=== PATIENT | female | born 2000 | race African-American/Black ===

== ENCOUNTER 2021-02-18 09:48 | Emergency (ER) | payer OTHER, SELFPAY ==
[2021-02-18 09:59] VITALS: BP 115/72; PULSE 92; RESP 18; TEMP 36.8; O2SAT 98; BMI 22.4
--- NOTE | 2021-02-18 10:15 | ED.URI ---
HPI - URI/Sore Throat General Chief Complaint: Upper Respiratory Symptoms Stated Complaint: sore throat Time Seen by Provider: 02/18/21 10:05 Source: patient Mode of arrival: ambulatory Limitations: no limitations History of Present Illness HPI Narrative: This is a 20-year-old female presents emergency with a sore throat , nasal congestion, and headache that has been progressively worsening for the past 2 days. She also states that she has felt warm home but she is unsure if she has had a fever. She states that her sister was seen here in the emergency department yesterday, her sister tested positive for strep throat. So she wanted to come today and get tested. She is currently accompanied by her other sister who is experiencing the same symptoms. She denies chest pain, cough, shortness of breath, chills, headache, abdominal pain, nausea, vomiting, diarrhea. She is eating and drinking well. MD elicited complaint: sore throat and nasal congestion Onset (ago): day(s) (2) Consistency: constant Severity: mild Able to tolerate fluids by mouth: Yes Exacerbating factors: nothing Relieving factors: nothing Context: sick contacts (Sister at home has strep throat, sister at the bedside has similar symptoms) Associated symptoms: nasal congestion and sore throat Treatments prior to arrival: none Related Data Previous Rx's Medication Instructions Recorded amoxicillin 875 mg-potassium 1 tab PO BID 10 Days #20 tab 02/18/21 clavulanate 125 mg tablet (Augmentin) Allergies Allergy/AdvReac Type Severity Reaction Status Date / Time No Known Allergies Allergy Unverified 02/15/20 17:31 [No Known Allergies*] Review of Systems Review of Systems: Constitutional : No Weight loss, No Fever, No Chills, No Night Sweats, No Fatigue, NoMalaise ENT/Mouth: No ear pain, + sore throat, No Difficulty swallowing, + runny nose Cardiovascular : No Chest Pain, No SOB, No Dyspnea on Exertion, No Orthopnea, NoEdema, No Palpitations Respiratory : No Cough, No Sputum, No Wheezing, No Dyspnea Gastrointestinal : No Nausea, No Vomiting, No abdominal pain, No Diarrhea, No blood streaked emesis, No coffee-ground emesis, No gross hematemesis, No blood streak stool, No gross hematochezia, No Melena Genitourinary : No irregular bleeding, No Dysuria, Musculoskeletal : No joint pain, No Myalgias, No Joint Swelling Skin : No Skin Lesions, No rash Neuro : No Weakness, No Numbness, No Paresthesias, No Loss of Consciousness, NoDizziness, No Headache Psych : No Social Issues, Heme/Lymph: No Bruising, No Bleeding,No Lymphadenopathy Endocrine : No Polyuria, No Polydipsia, No Temperature Intolerance Yes all other systems are reviewed and are negative PMFSH Past Medical History Attestation statement: The following information was validated with the patient. Medical History No known health problems Social History Social History Advance Directives: No Patient : No Physical Exam Vital Signs: Vital Signs: Last Vital Signs Temp 98.2 F 02/18/21 09:59 Pulse 92 02/18/21 09:59 Resp 18 02/18/21 09:59 BP 115/72 02/18/21 09:59 Pulse Ox 98 02/18/21 09:59 Body Mass Index 22.4 Vital signs have been reviewed and all WNL. Appearance: Alert. Oriented and active. Well hydrated/Nourished/developed. No acute distress. Patient sitting upright on the stretcher, laughing with her sister, on the phone, she appears well and comfortable Head: Normal external exam. Normocephalic. Atraumatic. Eyes: PERRLA. EOMI. Conjunctiva and sclera normal. Eyelids normal. ENT: TM WNL. EAC WNL. Hearing normal. Pharynx normal, no erythema or exudates. Tonsils appear normal in size. Uvula midline. tongue midline. Moist mucous membranes. No otorrhea, erythema, or effusions noted in bilateral ears. No lymphadenopathy noted. Neck: Normal inspection. Neck supple. FROM. No adenopathy. Thyroid Normal. Trachea midline. No meningeal signs. No neck mass noted. CVS: Normal heart rate and rhythm. Heart sound normal. No murmurs noted. Pulses normal throughout. Respiratory: No respiratory distress. Painless inspiration. Breath sounds normal. No rales/rhonchi noted. Chest nontender. No accessory muscle usage noted or decreased air movement noted. Abdomen: Soft and nontender. Nondistended. No guarding noted. No rebound tenderness noted. Negative psoas sign/rovsing signs/obturator sign/Chance sign. Skin: Skin warm and dry. Normal skin color. Normal skin turgor. No rashes/lesions/lacerations noted. Extremities: Extremities exhibit normal range of motion. Extremities nontender. Able to shrug shoulders bilaterally Neuro: Active and alert. No motor deficit. No sensory deficit. Reflexes normal. Moving all extremities. Normal steady gait noted. Course Course Course Narrative: This is a 20-year-old female that presents to the emergency department with 2 days of sore throat, headache, and nasal discharge. She states that her sister at home has strep throat. So she wanted to come in today and get tested. She is eating and drinking and feeling well. Physical exam shows no abnormalities. Flu/COVID/RSV and strep swab has been ordered and are pending [facility] - URI/Sore Throat Medical Records Attestation: I reviewed the patient's medical records. Lab Data Attestation: I reviewed the patient's lab results. Labs: Lab Results 02/18/21 Range/Units 10:09 S. pyogenes GrpA RADHA Negative (Negative) Discharge Plan Discharge Clinical Impression: Pharyngitis Patient Disposition: Home, Self-Care Instructions: Pharyngitis (ED) Additional Instructions: Taking medications as prescribed. Drink plenty of fluids You may return to school aslong as you tested negative for flu/COVID/RSV. Follow-up with your primary care provider We will call you back if any of your test come back positive Return to the emergency department with new or worsening symptoms. Prescriptions: New amoxicillin-pot clavulanate [Augmentin] 875-125 mg tablet 1 tab PO BID 10 Days Qty: 20 RF: 0 Referrals: Makayla Sheridan MD [Primary Care Provider] - 2 days Stand Alone Forms: Work/School Release
[2021-02-18 10:35] LABS: IDNOW Serial# 9DD0AD1C; Strep A Nucleic Acid Negative (Negative)
[2021-02-18 10:50] LABS: COVID-19 Test Negative (Negative); IDNOW Serial# 9DD0AD1C
== END 2021-02-18 10:46 | disposition home or self-care (01) ==
PROVIDERS: Emergency Provider Emergency Medicine; PCP Pediatrics
DX: J02.8 Acute pharyngitis due to other specified organisms (principal); R51.9 Headache, unspecified; Z79.899 Other long term (current) drug therapy; Z20.822 Contact with and (suspected) exposure to COVID-19
CPT/HCPCS: 36415; 87635; 87651; 99283

== ENCOUNTER 2021-04-29 01:41 | Emergency (ER) | payer OTHER, SELFPAY ==
--- NOTE | ~2021-04-29 | XR_ITS ---
EXAMINATION: XR CHEST CLINICAL INFORMATION: Cough and shortness of breath. COMPARISON: Chest x-ray from 10/03/2016. TECHNIQUE: 2 views of the chest were obtained. FINDINGS: No airspace opacities or pleural effusions are seen. The cardiomediastinal silhouette is normal. No acute osseous abnormality identified. XR/XR chest 2V IMPRESSION: Clear lungs. No radiographic acute process.
[2021-04-29 02:25] VITALS: BP 132/60; PULSE 91; RESP 16; TEMP 37.1; O2SAT 98; BMI 24.1
[2021-04-29 02:45] LABS: Strep A Nucleic Acid Negative (Negative)
[2021-04-29 02:48] LABS: COVID-19 Test Negative (Negative)
--- NOTE | 2021-04-29 07:10 | ED_ITS ---
HPI - URI/Sore Throat General Chief Complaint: Upper Respiratory Symptoms Stated Complaint: sore throat Time Seen by Provider: 04/29/21 07:09 Source: patient Mode of arrival: ambulatory Limitations: no limitations History of Present Illness HPI Narrative: 20-year-old female came in for evaluation of upper respiratory symptoms. Started with fever, chills, generalized body ache, coughing, sore throat. For 1 day, no sick contact, no recent travel, patient is vaccinated x2 for COVID. Related Data Previous Rx's Medication Instructions Recorded amoxicillin 875 mg-potassium 1 tab PO BID 10 Days #20 tab 02/18/21 clavulanate 125 mg tablet (Augmentin) Allergies Allergy/AdvReac Type Severity Reaction Status Date / Time No Known Allergies Allergy Unverified 02/15/20 17:31 [No Known Allergies*] Review of Systems Review of Systems: All other systems are reviewed and are negative Constitutional: Reports as per HPI and Reports no additional constitutional complaints Eyes: Reports as per HPI and Reports no additional eye complaints Reports system reviewed and no additional complaints, except as documented Cardiovascular: Reports as per HPI and Reports no additional cardiovascular complaints Respiratory: Reports as per HPI and Reports no additional respiratory complaints Gastrointestinal: Reports as per HPI and Reports no additional gastrointestinal complaints Genitourinary: Reports no additional female genitourinary complaints Musculoskeletal: Reports no additional musculoskeletal complaints Skin/Breast: Reports system reviewed and no additional complaints, except as docu Psychiatric: Reports no additional psychiatric complaints Endocrine: Reports no additional endocrine complaints Hematologic/Lymphatic: Reports no additional hematologic/lymphatic complaints Allergic/Immunologic: Reports no additional allergic/immunologic complaints Reports system reviewed and no additional complaints, except as documented and Reports Abnormal speech present [facility] Past Medical History Medical History Asthma No known health problems Social History Social History Advance Directives: No Advance Directives Information Provided: No Patient : No Physical Exam Vital Signs: Vital Signs: Last Vital Signs Temp 98.7 F 04/29/21 02:25 Pulse 91 04/29/21 02:25 Resp 16 04/29/21 02:25 BP 132/60 04/29/21 02:25 Pulse Ox 98 04/29/21 02:25 Body Mass Index 24.1 Vital signs have been reviewed as appeared to be correct. Blood pressure normal. Heart rate normal. Respiration rate normal. Temperature normal. Oxygen saturation normal. Appearance: Alert. Oriented X3. No acute distress. Head: Normal external exam. Normocephalic. Atraumatic. No Field signs noted. No raccoon eyes noted Eyes: PERRLA. EOMI. Conjunctiva and sclera normal. Eyelids normal. ENT: TM's Normal. Pharynx normal. Uvula midline. Moist mucous membranes. No trismus noted. No drooling noted. No muffled voice noted. Neck: Normal inspection. Neck supple. FROM. No adenopathy. Thyroid Normal. No meningeal signs. No neck mass noted. CVS: Normal heart rate and rhythm. Heart sound normal. No murmurs noted. Pulses normal throughout. Respiratory: No respiratory distress. Painless inspiration. Breath sounds normal. No wheezes/rales/rhonchi noted. Chest nontender. No accessory muscle usage noted or decreased air movement noted. Abdomen: Soft and nontender. Bowel sounds normal in all 4 quadrants. No distention noted. No organomegaly noted. No visible injury noted. Back: No CVA tenderness. Full range of motion noted. Skin: Skin warm and dry. Normal skin color. Normal skin turgor. No rashes/lesions/lacerations noted. Extremities: No lower extremity edema. Extremities exhibit normal range of motion. Extremities nontender. Neuro: Oriented X 3. Cranial nerve exam: II-XII are grossly intact No motor deficit. No sensory deficit. Reflexes normal. Course Course Course Narrative: Assessment and plan. 20-year-old female came in for evaluation of upper respiratory symptoms, patient negative for COVID/flu/RSV. Chest x-ray is unremarkable. Rapid strep is negative. MDM - URI/Sore Throat Lab Data Labs: Lab Results 04/29/21 04/29/21 Range/Units 02:27 02:27 COVID-19 (JOHAN) Negative (Negative) COVID-19 Clin Com See Note S. pyogenes GrpA RADHA Negative (Negative) Discharge Plan Discharge Clinical Impression: Upper respiratory infection Patient Disposition: Home, Self-Care Instructions: Viral Syndrome (ED) Prescriptions: No Action amoxicillin-pot clavulanate [Augmentin] 875-125 mg tablet 1 tab PO BID 10 Days Qty: 20 RF: 0 Referrals: [facility] [Primary Care Provider] - 2 days
[2021-04-29 07:57] VITALS: BP 113/57; PULSE 85; RESP 16; O2SAT 100
== END 2021-04-29 08:26 | disposition home or self-care (01) ==
PROVIDERS: Emergency Provider Emergency Medicine
DX: J06.9 Acute upper respiratory infection, unspecified (principal); Z20.822 Contact with and (suspected) exposure to COVID-19; J02.9 Acute pharyngitis, unspecified; J45.909 Unspecified asthma, uncomplicated
CPT/HCPCS: 36415; 71046; 87635; 87651; 99283; 99284

== ENCOUNTER 2021-09-23 07:50 | Day surgery (SDC) | payer MEDICAID, SELFPAY ==
[2021-09-23] VITALS (18 sets, daily range): BP systolic 108–132; BP diastolic 60–85; PULSE 61–94; RESP 12–18; TEMP 36.5–37.2; O2SAT 98–100; BMI 23.0
--- NOTE | ~2021-09-23 | CT_ITS ---
EXAMINATION: CT ABDOMEN AND PELVIS WITH CONTRAST CLINICAL INFORMATION: Diffuse abdominal tenderness, greatest in the right lower quadrant. COMPARISON: None. TECHNIQUE: Multidetector volumetric images were obtained from the superior aspect of the liver through the pubic symphysis following administration 85 mL of Omnipaque 350 intravenous contrast. Sagittal and coronal reformatted images were obtained on the technologist's workstation. Oral contrast: Yes This CT examination was performed using dose optimization techniques as appropriate, variously including the following: *Automated exposure control *Adjustment of mA and/or kV according to patient size (this includes techniques or standardized protocols for targeted exams where dose is matched to indication/reason for exam; i.e. extremities or head) *Use of iterative reconstruction technique DLP: 425 mGy-cm FINDINGS: LUNG BASES: The visualized lung bases are unremarkable. LIVER, GALLBLADDER, AND BILIARY TREE: The liver is normal in size, shape, and attenuation. There is a small 3 mm low-attenuation lesion high in the dome of the liver. This is difficult to characterize due to small size but probably represents a cyst. There is no biliary duct dilatation. The gallbladder is unremarkable with no evidence of radiopaque gallstones, gallbladder wall thickening, or obvious pericholecystic inflammatory changes. PANCREAS: Unremarkable. SPLEEN: Unremarkable. ADRENAL GLANDS: Unremarkable. KIDNEYS AND URETERS: The kidneys are normal in size, shape, and attenuation. No hydronephrosis, hydroureter, or calculi seen. No perinephric stranding. BLADDER: Unremarkable. GASTROINTESTINAL TRACT: There is a dilated tubular blind-ending structure in the right lower quadrant suggestive of acute appendicitis. This measures 1.3 cm in diameter. There is high attenuation suggestive of appendicoliths. There is a small amount of surrounding fluid in the right lower quadrant. No free air/evidence of perforation. ABDOMINAL WALL: No significant hernia is appreciated. LYMPH NODES: There is shotty small bowel mesentery lymphadenopathy in the right lower quadrant. VASCULAR: Unremarkable. PELVIC VISCERA: Unremarkable. OSSEOUS STRUCTURES: Unremarkable. CT/CT abdomen pelvis w con IMPRESSION: Acute appendicitis. Small amount of surrounding fluid in the right lower quadrant. Fleischner guidelines were followed. Findings were communicated to Corina Kamara by telephone on 09/23/2021 at 10:55 AM.
--- NOTE | 2021-09-23 08:22 | ED_ITS ---
HPI - Abdominal Pain General Chief Complaint: Abdominal Pain Stated Complaint: abd pain Time Seen by Provider: 09/23/21 08:11 Source: patient Mode of arrival: ambulatory History of Present Illness HPI narrative: 20-year-old female with a past medical history of asthma presenting to the ED complaining left upper abdominal pain radiating to the epigastrium x2 weeks. Reports pain intermittent however has become more constant. Reports associated nausea and emesis this morning. Also reports constipation, last BM 3 days ago. Denies fever, chills, diarrhea, dysuria/hematuria. LMP last month. MD elicited complaint: abdominal pain and flank pain Onset (ago): week(s) Related Data Previous Rx's Medication Instructions Recorded amoxicillin 875 mg-potassium 1 tab PO BID 10 Days #20 tab 02/18/21 clavulanate 125 mg tablet (Augmentin) Allergies Allergy/AdvReac Type Severity Reaction Status Date / Time No Known Allergies Allergy Unverified 02/15/20 17:31 [No Known Allergies*] Review of Systems Review of Systems Constitutional: No Fever, No Chills, No Fatigue, No Malaise ENT/Mouth: No Ear Pain, No Nasal Congestion, No sore throat, No Rhinorrhea, No Swallowing Difficulty Eyes: No Eye Pain, No Swelling, No Redness, No Discharge, No Vision Changes Cardiovascular: No Chest Pain, No SOB, No Edema, No Palpitations Respiratory: No Cough, No Sputum, No Dyspnea Gastrointestinal: + Nausea, + Vomiting, No Diarrhea, + Constipation,+No Abdominal pain Genitourinary: No Dysuria, No Urinary Frequency, No Hematuria, + Flank Pain, No Urinary Flow Changes, No Hesitancy Musculoskeletal: No joint pain, No Myalgias, No Joint Swelling Skin: No Skin Lesions, No rash Neuro: No Weakness, No Dizziness, No Headache Yes all other systems are reviewed and are negative ON LICENSE OF [facility] Past Medical History Attestation statement: The following information was validated with the patient. Medical History Asthma No known health problems Social History Social History Advance Directives: No Advance Directives Information Provided: No Physical Exam ED Vital Signs: Vital Signs - 24 hr 09/23/21 08:20 Temperature 98.8 F Pulse Rate 87 Respiratory Rate 18 Blood Pressure 122/70 Pulse Oximetry 100 BMI result Body Mass Index 23.0 Const General: cooperative, healthy appearing and no acute distress Orientation/consciousness: patient oriented x3 Limitations: no limitations HENMT Head: Yes normal to inspection and Yes atraumatic Ears: hearing grossly normal bilaterally General nose exam: Normal external nose present Face and sinus: Yes normal facial exam Eyes General: appearance normal, both eyes and all related structures EOM: EOMs intact bilaterally Neck Neck: Yes normal visual inspection and Yes no meningeal signs Resp Effort & Inspection: normal respiratory effort and no respiratory distress Cardio Rate: regular rate Heart sounds: S1 normal heart sound present and S2 normal heart sound present GI Inspection: Yes normal to inspection Palpation (GI): Soft to palpation, Tenderness to palpation present (GI) (Diffusely tender > RLQ) in the epigastrum and in the RLQ; Negative for with no rebound tenderness, no guarding and not rigid General: Yes CVA tenderness bilateral Back/Spine/Pelvis Back: CVA tenderness Skin Rashes: no rashes Wounds: no wounds Neuro General: patient oriented x3, tone normal and no meningeal signs Gait exam (Neuro): Normal gait present Extrem General: Yes normal to inspection Course Course Course Narrative: -mild leukocytosis of 11.6, labs otherwise unremarkable. negative. -1100--received call from radiology patient with acute appendicitis with surrounding fluid, no perforation. Surgery Dr. Gomez consulted. CT abdomen pelvis w con IMPRESSION: Acute appendicitis. Small amount of surrounding fluid in the right lower quadrant. Fleischner guidelines were followed. >> Dr. Gomez evaluated patient in the ED, will add to OR schedule later today MDM - Abdominal Pain MDM Narrative Medical decision making narrative: 20-year-old female with a past medical history of asthma presenting to the ED complaining left upper abdominal pain radiating to the epigastrium x2 weeks. On exam vital signs stable, NAD/nontoxic appearing, abdomen soft diffusely tender greatest in the right lower quadrant. Bilateral CVA tenderness. No rebound or guarding. Concern for appendicitis vs diverticulitis/colitis vs cholecystitis/lithiasis vs pancreatitis. Rule out Plan: Labs, UA, , IVF, pain management, CT, re-evaluate Medical Records Attestation: I reviewed the patient's medical records. Lab Data Attestation: I reviewed the patient's lab results. Result diagrams: 04/26/22 08:37 09/23/21 08:37 Labs: Lab Results 09/23/21 09/23/21 09/23/21 Range/Units 08:22 08:23 08:37 WBC 11.6 H (4.8-10.8) X10*3/uL RBC 4.36 (4.20-5.50) X10*6/uL Hgb 11.3 L (12.0-16.0) g/dl Hct 35.8 L (37.0-47.0) % MCV 82.1 (80.0-98.0) fL MCH 25.9 L (27.0-33.0) pg MCHC 31.6 (31.0-35.0) g/dl RDW 13.2 (11.0-16.0) % Plt Count 243 (160-400) X10*3/uL MPV 8.6 L (9.4-12.3) fL Immature Gran % (Auto) 0.4 (0.0-0.4) % Neut % (Auto) 77.6 H (45-73) % Lymph % (Auto) 12.5 L (20-40) % [place] % (Auto) 7.0 (2-11) % Eos % (Auto) 2.3 (0-4) % Baso % (Auto) 0.2 (0-2) % Lymph # (Auto) 1.5 (1.2-4.9) X10*3/uL [place] # (Auto) 0.8 (0.1-1.2) X10*3/uL Eos # (Auto) 0.3 (0.0-0.4) X10*3/uL Baso # (Auto) 0.0 (0.0-0.2) X10*3/uL Abs Immat Gran (auto) 0.05 H (0.00-0.03) X10*3/uL Absolute Neuts (auto) 9.0 H (2.0-8.3) x10*3/uL Absolute Nucleated RBC 0.000 (0.0-0.012) X10*3/uL Nucleated RBC % (auto) 0.0 (0.0-0.2) /100WBC Sodium (135-145) mmol/L Potassium (3.3-5.1) mmol/L Chloride (96-108) mmol/L Carbon Dioxide (22-29) mmol/L Anion Gap (12-20) BUN (9-16) mg/dL Creatinine (0.5-1.4) mg/dL Estim Creat Clear Calc Estimated GFR Random Glucose (60-115) mg/dL Calcium (8.4-10.2) mg/dL Magnesium (1.6-2.6) mg/dL Total Bilirubin (0.0-1.0) mg/dL Direct Bilirubin (0.0-0.5) mg/dL AST (5-31) U/L ALT (0-31) U/L Alkaline Phosphatase (39-117) U/L Total Protein (6.5-8.0) g/dL Albumin (3.5-5.0) g/dL Lipase (8-78) U/L Beta HCG, Quant mIU/mL Urine Color YELLOW Urine Appearance CLEAR Urine pH 6.0 (5.0-8.0) Ur Specific Elsa 1.020 (1.005-1.025) Urine Protein NEG (NEG-TRACE) MG/DL Urine Glucose (UA) NEG (NEG) MG/DL Urine Ketones NEG (NEG) MG/DL Urine Blood NEG (NEG) Urine Nitrite NEG (NEG) Ur Leukocyte Esterase NEG (NEG) Urine Test NEGATIVE (NEGATIVE) 09/23/21 09/23/21 Range/Units 08:37 08:37 WBC (4.8-10.8) X10*3/uL RBC (4.20-5.50) X10*6/uL Hgb (12.0-16.0) g/dl Hct (37.0-47.0) % MCV (80.0-98.0) fL MCH (27.0-33.0) pg MCHC (31.0-35.0) g/dl RDW (11.0-16.0) % Plt Count (160-400) X10*3/uL MPV (9.4-12.3) fL Immature Gran % (Auto) (0.0-0.4) % Neut % (Auto) (45-73) % Lymph % (Auto) (20-40) % [place] % (Auto) (2-11) % Eos % (Auto) (0-4) % Baso % (Auto) (0-2) % Lymph # (Auto) (1.2-4.9) X10*3/uL [place] # (Auto) (0.1-1.2) X10*3/uL Eos # (Auto) (0.0-0.4) X10*3/uL Baso # (Auto) (0.0-0.2) X10*3/uL Abs Immat Gran (auto) (0.00-0.03) X10*3/uL Absolute Neuts (auto) (2.0-8.3) x10*3/uL Absolute Nucleated RBC (0.0-0.012) X10*3/uL Nucleated RBC % (auto) (0.0-0.2) /100WBC Sodium 137 (135-145) mmol/L Potassium 4.3 (3.3-5.1) mmol/L Chloride 106 (96-108) mmol/L Carbon Dioxide 26 (22-29) mmol/L Anion Gap 9 L (12-20) BUN 8 L (9-16) mg/dL Creatinine 0.76 (0.5-1.4) mg/dL Estim Creat Clear Calc 98.4 Estimated GFR > 60 Random Glucose 95 (60-115) mg/dL Calcium 9.3 (8.4-10.2) mg/dL Magnesium 2.0 (1.6-2.6) mg/dL Total Bilirubin 0.4 (0.0-1.0) mg/dL Direct Bilirubin 0.2 (0.0-0.5) mg/dL AST 12 (5-31) U/L ALT 6 (0-31) U/L Alkaline Phosphatase 62 (39-117) U/L Total Protein 7.3 (6.5-8.0) g/dL Albumin 4.2 (3.5-5.0) g/dL Lipase 25 (8-78) U/L Beta HCG, Quant < 2 mIU/mL Urine Color Urine Appearance Urine pH (5.0-8.0) Ur Specific Elsa (1.005-1.025) Urine Protein (NEG-TRACE) MG/DL Urine Glucose (UA) (NEG) MG/DL Urine Ketones (NEG) MG/DL Urine Blood (NEG) Urine Nitrite (NEG) Ur Leukocyte Esterase (NEG) Urine Test (NEGATIVE) Discharge Plan Discharge Clinical Impression: Acute appendicitis Patient Disposition: Admitted As Inpatient
[2021-09-23 08:30] LABS: Appearance Urine CLEAR; Color Urine YELLOW; Glucose Urine UA NEG (NEG); Leukocyte Esterase Urine NEG (NEG); Nitrite Urine NEG (NEG); Urine Blood NEG (NEG); Urine Ketones NEG (NEG); Urine Protein NEG (NEG-TRACE)
[2021-09-23 08:33] LABS: UPreg QC Valid YES; Urine Pregnancy NEGATIVE (NEGATIVE)
[2021-09-23 08:42] LABS: MANUAL DIFF FLAG NO
[2021-09-23 08:43] LABS: Basophils Percent Auto 0.2 % (0-2); Eosinophils Absolute Auto 0.3 X10*3/uL (0.0-0.4); Eosinophils Percent Auto 2.3 % (0-4); Hematocrit 35.8 % (37.0-47.0); Hemoglobin 11.3 g/dl (12.0-16.0); Imm Gran Abs Auto 0.05 X10*3/uL (0.00-0.03); Imm Gran Pct Auto 0.4 % (0.0-0.4); Lymphocytes Absolute Auto 1.5 X10*3/uL (1.2-4.9); Lymphocytes Percent Auto 12.5 % (20-40); Mean Corpuscular HGB Conc 31.6 g/dl (31.0-35.0); Mean Corpuscular Hemoglobin 25.9 pg (27.0-33.0); Mean Corpuscular Volume 82.1 fL (80.0-98.0); Mean Platelet Volume 8.6 fL (9.4-12.3); Monocytes Absolute Auto 0.8 X10*3/uL (0.1-1.2); Neutrophils Percent Auto 77.6 % (45-73); Platelet Count 243 X10*3/uL (160-400); Red Blood Count 4.36 X10*6/uL (4.20-5.50); Red Cell Distribution Width 13.2 % (11.0-16.0); White Blood Count 11.6 X10*3/uL (4.8-10.8)
[2021-09-23] MEDS: Famotidine/PF 20 MG/2 ML VIAL IVPUSH (08:53)
[2021-09-23] MEDS: 0.9 % Sodium Chloride 1,000 ML 999 ML IV ×2 (08:54→11:16)
[2021-09-23 09:14] LABS: HCG Quantitative < 2 mIU/mL
[2021-09-23 09:17] LABS: Alanine Aminotransferase 6 U/L (0-31); Albumin Level 4.2 g/dL (3.5-5.0); Alkaline Phosphatase 62 U/L (39-117); Aspartate Amino Transferase 12 U/L (5-31); Bilirubin Direct 0.2 mg/dL (0.0-0.5); Bilirubin Total 0.4 mg/dL (0.0-1.0); Blood Urea Nitrogen 8 mg/dL (9-16); Calcium 9.3 mg/dL (8.4-10.2); Creatinine Clr Calc Pharmacy 98.4; Estimated Glomerular Filt Rate > 60; Glucose Random 95 mg/dL (60-115); Lipase 25 U/L (8-78); Total Protein 7.3 g/dL (6.5-8.0)
[2021-09-23 09:30] LABS: Anion Gap 9 (12-20); Carbon Dioxide 26 mmol/L (22-29); Chloride 106 mmol/L (96-108); Potassium 4.3 mmol/L (3.3-5.1); Sodium 137 mmol/L (135-145)
[2021-09-23] MEDS: iohexoL 350 MG/ML 100 ML INFUS..BTL 85 ML IV (09:58)
[2021-09-23] MEDS: Ketorolac Tromethamine 15 MG/ML VIAL IVPUSH (10:27)
[2021-09-23] MEDS: ondansetron HCL 4 MG/2 ML VIAL IVPUSH ×2 (10:27→18:57)
--- NOTE | 2021-09-23 11:17 | PM.HPGS ---
History of Present Illness History of Present Illness Date of Service: 09/23/21 Chief complaint: abd pain Narrative: Gabo Nava is a 20 year old female presenting with complaints of abdominal pain of 2 weeks duration. The pain was initially felt in the epigastrium but now is become localized to the right lower quadrant. The pain is associated with nausea, vomiting, anorexia, but no fever, chills, diarrhea or constipation. Pain seems to increase with movement/walking. She subsequently presented to the emergency department was noted to be tender in the right lower quadrant over McBurney's point. Laboratories revealed a mildly elevated WBC. CT of the abdomen and pelvis revealed a thickened appendix with fecalith and surrounding fluid. No air bubbles are noted surrounding the appendix. Findings are consistent with acute appendicitis. Review of Systems Constitutional: Constitutional: Denies chills, Denies fever(s), Denies headache(s) and Denies poor appetite ENT: Denies dizziness and Denies headache(s) Cardiovascular: Cardiovascular: Denies chest pain, Denies rapid heart rate, Denies palpitations and Denies slow heart rate Respiratory: Respiratory: Denies chest congestion, Denies cough, Denies pain on inspiration and Denies wheezing Gastrointestinal: Gastrointestinal: Reports abdominal pain, Denies bloating, Denies change in stool character, Denies constipation, Denies diarrhea, Reports nausea, Reports vomiting and Denies hematemesis Musculoskeletal: Musculoskeletal: Denies back pain, Denies arthralgias, Denies joint swelling and Denies numbness Integumentary/Breasts: Skin/Breast: Denies change in pigmentation, Denies erythema and Denies rash Neurologic: Denies dizziness, Denies headache(s) and Denies numbness Psychiatric: Psychiatric: Denies anxiety and Denies depression Endocrine: Endocrine: Denies palpitations Hematologic/Lymphatic: Hematologic/Lymphatic: Denies easy bleeding, Denies easy bruising and Denies lymphadenopathy Allergic/Immunologic: Allergic/Immunologic: Denies wheezing PMFSH Past Medical History Medical History Asthma No known health problems Social History Social History Advance Directives: No Advance Directives Information Provided: No Meds Allergies Allergy/AdvReac Type Severity Reaction Status Date / Time No Known Allergies Allergy Unverified 02/15/20 17:31 [No Known Allergies*] Active Medications: Current Medications Sodium Chloride (Ns) 1,000 mls @ 999 mls/hr IV .Q1H1M BIBIANA Stop: 09/23/21 12:00 Last Admin: 09/23/21 11:16 Dose: 999 mls/hr Documented by: Pharmacy Consult (Consult Rx Perform Med Rec) 1 each MISCELLANE ONCE PRN PRN Reason: Consult order Physical Exam Vital Signs: Vital Signs: Last Vital Signs Temp 98.8 F 09/23/21 08:20 Pulse 87 09/23/21 08:20 Resp 18 09/23/21 08:20 BP 122/70 09/23/21 08:20 Pulse Ox 100 09/23/21 08:20 BMI result Body Mass Index 23.0 Const: General: cooperative, comfortable and well developed Nutritional Appearance: well nourished Orientation/consciousness: patient oriented x3 Eyes: Sclerae: sclerae normal EOM: EOMs intact bilaterally Neck: Neck: Yes normal visual inspection Resp: Effort & Inspection: normal respiratory effort, no cough, no respiratory distress and no stridor Cardio: Jugular venous distension: no JVD GI: Inspection: Yes normal to inspection Palpation (GI): Soft to palpation, Tenderness to palpation present (GI) in the RLQ, at McBurney's point, with rebound tenderness and Rovsing's sign positive, no guarding and not rigid Percussion: Yes normal to percussion Rectal Exam - Female: deferred Skin: General skin exam: dry skin Rashes: no rashes Neuro: General: patient oriented x3 and no focal motor deficits Extrem: General: Yes full ROM and Yes no clubbing, cyanosis or edema Psych: Appearance: grossly normal Results Results Labs: Short CBC 09/23/21 Range/Units 08:37 WBC 11.6 H (4.8-10.8) X10*3/uL Hgb 11.3 L (12.0-16.0) g/dl Hct 35.8 L (37.0-47.0) % Plt Count 243 (160-400) X10*3/uL BMP 09/23/21 08:37 Sodium 137 Potassium 4.3 Chloride 106 Carbon Dioxide 26 BUN 8 L Creatinine 0.76 Calcium 9.3 Liver Function 04/26/22 Range/Units 08:37 Total Bilirubin 0.4 (0.0-1.0) mg/dL Direct Bilirubin 0.2 (0.0-0.5) mg/dL AST 12 (5-31) U/L ALT 6 (0-31) U/L Alkaline Phosphatase 62 (39-117) U/L Albumin 4.2 (3.5-5.0) g/dL Urine 09/23/21 09/23/21 Range/Units 08:22 08:23 Urine Color YELLOW Urine Appearance CLEAR Urine pH 6.0 (5.0-8.0) Ur Specific Clarissa 1.020 (1.005-1.025) Urine Protein NEG (NEG-TRACE) MG/DL Urine Glucose (UA) NEG (NEG) MG/DL Urine Test NEGATIVE (NEGATIVE) Assessment and Plan (1) Acute appendicitis: Status: Acute Plan 20-year-old female patient presenting with complaints of abdominal pain of 2 weeks duration. Pain is now localized to the right lower quadrant. Workup revealed elevated WBC and CT is consistent with acute appendicitis. Findings were discussed in detail with the patient and her mother. Because of the presence of a fecalith laparoscopic appendectomy is recommended. After discussion of the procedure, risks, and alternatives, the patient consents to a laparoscopic or possible open appendectomy. She will be added onto the operative schedule for today. Quality Stroke Does the patient have a stroke diagnosis?: No VTE Prior VTE?: No VTE Risk Level:: Surgical - low VTE Device Contraindication: N/A - Device Ordered VTE Drug Contraindication: Treatment Not Indicated Procedures Date of Service Date of Service: 09/23/21
[2021-09-23 11:38] LABS: Lactic Acid 0.8 mmol/L (0.5-2.0)
--- NOTE | 2021-09-23 11:43 | PHA.MEDREC ---
Pharmacy Consult ? Medication Reconciliation Pharmacy has completed the medication reconciliation. No known home meds. Noelle BobbyD
[2021-09-23 11:45] LABS: COVID-19 Test Negative (Negative)
[2021-09-23] MEDS: Lactated Ringers 1,000 ML 100 ML IVCONT ×2 (12:33→18:45)
--- NOTE | 2021-09-23 12:38 | PC.NURSE ---
report given to short stay rn
--- NOTE | 2021-09-23 13:32 | HO.ANESPROP2 ---
[facility] Active Problems Active Problems: All Active Problems (Updated 09/23/21 @ 11:13 by LISA Huang) Acute appendicitis (Acute) Past Medical History Medical History Asthma No known health problems Family History Family history of problems with anesthesia: No Surgical History History of Problems with Anesthesia: No Social History Social History Patient Tobacco Use Status: Never used Tobacco Use of substances other than those prescribed or required for medical reasons: No Are you DNR?: No Advance Directives: No Advance Directives Information Provided: No Meds Allergies Allergy/AdvReac Type Severity Reaction Status Date / Time No Known Allergies Allergy Unverified 02/15/20 17:31 [No Known Allergies*] Active Medications: Current Medications Lactated Ringer's (Lr) 1,000 mls @ 100 mls/hr IVCONT .Q10H BIBIANA Last Admin: 09/23/21 12:33 Dose: 100 mls/hr Documented by: Pharmacy Consult (Consult Rx Perform Med Rec) 1 each MISCELLANE ONCE PRN PRN Reason: Consult order Home Medications Medication Instructions Recorded Confirmed Last Taken Type No Known Home Meds 09/23/21 09/23/21 Unknown History Exam Exam Date and Time: September 23, 2021 1332 Height,Weight and Vital Signs: Height 5 ft 3 in Weight 58.967 kg Last Vital Signs Temp 98.9 F 09/23/21 13:14 Pulse 72 09/23/21 13:14 Resp 16 09/23/21 13:14 BP 121/75 09/23/21 13:14 Pulse Ox 98 09/23/21 13:14 Pertinent Lab Results Pertinent Lab Results: Laboratory Tests 09/23/21 09/23/21 09/23/21 08:22 08:23 08:37 WBC 11.6 H RBC 4.36 Hgb 11.3 L Hct 35.8 L MCV 82.1 MCH 25.9 L MCHC 31.6 RDW 13.2 Plt Count 243 MPV 8.6 L Immature Gran % (Auto) 0.4 Neut % (Auto) 77.6 H Lymph % (Auto) 12.5 L [place] % (Auto) 7.0 Eos % (Auto) 2.3 Baso % (Auto) 0.2 Lymph # (Auto) 1.5 [place] # (Auto) 0.8 Eos # (Auto) 0.3 Baso # (Auto) 0.0 Abs Immat Gran (auto) 0.05 H Absolute Neuts (auto) 9.0 H Absolute Nucleated RBC 0.000 Nucleated RBC % (auto) 0.0 Neutrophils % (Manual) Cancelled Band Neutrophils % Cancelled Lymphocytes % (Manual) Cancelled Atypical Lymphs % (Man) Cancelled Monocytes % (Manual) Cancelled Eosinophils % (Manual) Cancelled Basophils % (Manual) Cancelled Metamyelocytes % Cancelled Myelocytes % Cancelled Promyelocytes % Cancelled Blast Cells % (Manual) Cancelled Plasma Cell % (Manual) Cancelled Abs Neuts (Manual) Cancelled Lymphocytes # (Manual) Cancelled Atyp Lymphs # (Manual) Cancelled Monocytes # (Manual) Cancelled Eosinophils # (Manual) Cancelled Basophils # (Manual) Cancelled Metamyelocytes # Cancelled Myelocytes # Cancelled Promyelocytes # Cancelled Blast Cells # Cancelled Plasma Cell # (Manual) Cancelled Nucleated RBCs Cancelled Differential Comment Cancelled Hypersegmented Neuts Cancelled Smudge Cells Cancelled Toxic Granulation Cancelled Toxic Vacuolation Cancelled Dohle Bodies Cancelled Lazarus Rods Cancelled WBC Morphology Comment Cancelled Platelet Estimate Cancelled Large Platelets Cancelled Giant Platelets Cancelled Plt Morphology Comment Cancelled RBC Morphology Cancelled Polychromasia Cancelled Hypochromasia Cancelled Basophilic Stippling Cancelled Microcytosis Cancelled Macrocytosis Cancelled Spherocytes Cancelled Pappenheimer Bodies Cancelled Sickle Cells Cancelled Target Cells Cancelled Tear Drop Cells Cancelled Ovalocytes Cancelled Stomatocytes Cancelled [place] Bodies Cancelled [place] Cells Cancelled Acanthocytes (Spur) Cancelled Rouleaux Cancelled Schistocytes Cancelled Sodium Potassium Chloride Carbon Dioxide Anion Gap BUN Creatinine Estim Creat Clear Calc Estimated GFR Random Glucose Lactic Acid Calcium Magnesium Total Bilirubin Direct Bilirubin AST ALT Alkaline Phosphatase Total Protein Albumin Lipase Beta HCG, Quant Urine Color YELLOW Urine Appearance CLEAR Urine pH 6.0 Ur Specific [place] 1.020 Urine Protein NEG Urine Glucose (UA) NEG Urine Ketones NEG Urine Blood NEG Urine Nitrite NEG Ur Leukocyte Esterase NEG Urine Test NEGATIVE COVID-19 (JOHAN) COVID-19 Clin [facility] 09/23/21 09/23/21 09/23/21 08:37 08:37 11:19 WBC RBC Hgb Hct MCV MCH MCHC RDW Plt Count MPV Immature Gran % (Auto) Neut % (Auto) Lymph % (Auto) [place] % (Auto) Eos % (Auto) Baso % (Auto) Lymph # (Auto) [place] # (Auto) Eos # (Auto) Baso # (Auto) Abs Immat Gran (auto) Absolute Neuts (auto) Absolute Nucleated RBC Nucleated RBC % (auto) Neutrophils % (Manual) Band Neutrophils % Lymphocytes % (Manual) Atypical Lymphs % (Man) Monocytes % (Manual) Eosinophils % (Manual) Basophils % (Manual) Metamyelocytes % Myelocytes % Promyelocytes % Blast Cells % (Manual) Plasma Cell % (Manual) Abs Neuts (Manual) Lymphocytes # (Manual) Atyp Lymphs # (Manual) Monocytes # (Manual) Eosinophils # (Manual) Basophils # (Manual) Metamyelocytes # Myelocytes # Promyelocytes # Blast Cells # Plasma Cell # (Manual) Nucleated RBCs Differential Comment Hypersegmented Neuts Smudge Cells Toxic Granulation Toxic Vacuolation Dohle Bodies Lazarus Rods WBC Morphology Comment Platelet Estimate Large Platelets Giant Platelets Plt Morphology Comment RBC Morphology Polychromasia Hypochromasia Basophilic Stippling Microcytosis Macrocytosis Spherocytes Pappenheimer Bodies Sickle Cells Target Cells Tear Drop Cells Ovalocytes Stomatocytes [place] Bodies [place] Cells Acanthocytes (Spur) Rouleaux Schistocytes Sodium 137 Potassium 4.3 Chloride 106 Carbon Dioxide 26 Anion Gap 9 L BUN 8 L Creatinine 0.76 Estim Creat Clear Calc 98.4 Estimated GFR > 60 Random Glucose 95 Lactic Acid 0.8 Calcium 9.3 Magnesium 2.0 Total Bilirubin 0.4 Direct Bilirubin 0.2 AST 12 ALT 6 Alkaline Phosphatase 62 Total Protein 7.3 Albumin 4.2 Lipase 25 Beta HCG, Quant < 2 Urine Color Urine Appearance Urine pH Ur Specific [place] Urine Protein Urine Glucose (UA) Urine Ketones Urine Blood Urine Nitrite Ur Leukocyte Esterase Urine Test COVID-19 (JOHAN) COVID-19 Clin Com 09/23/21 11:25 WBC RBC Hgb Hct MCV MCH MCHC RDW Plt Count MPV Immature Gran % (Auto) Neut % (Auto) Lymph % (Auto) [place] % (Auto) Eos % (Auto) Baso % (Auto) Lymph # (Auto) [place] # (Auto) Eos # (Auto) Baso # (Auto) Abs Immat Gran (auto) Absolute Neuts (auto) Absolute Nucleated RBC Nucleated RBC % (auto) Neutrophils % (Manual) Band Neutrophils % Lymphocytes % (Manual) Atypical Lymphs % (Man) Monocytes % (Manual) Eosinophils % (Manual) Basophils % (Manual) Metamyelocytes % Myelocytes % Promyelocytes % Blast Cells % (Manual) Plasma Cell % (Manual) Abs Neuts (Manual) Lymphocytes # (Manual) Atyp Lymphs # (Manual) Monocytes # (Manual) Eosinophils # (Manual) Basophils # (Manual) Metamyelocytes # Myelocytes # Promyelocytes # Blast Cells # Plasma Cell # (Manual) Nucleated RBCs Differential Comment Hypersegmented Neuts Smudge Cells Toxic Granulation Toxic Vacuolation Dohle Bodies Lazarus Rods WBC Morphology Comment Platelet Estimate Large Platelets Giant Platelets Plt Morphology Comment RBC Morphology Polychromasia Hypochromasia Basophilic Stippling Microcytosis Macrocytosis Spherocytes Pappenheimer Bodies Sickle Cells Target Cells Tear Drop Cells Ovalocytes Stomatocytes [place] Bodies Raul Cells Acanthocytes (Spur) Rouleaux Schistocytes Sodium Potassium Chloride Carbon Dioxide Anion Gap BUN Creatinine Estim Creat Clear Calc Estimated GFR Random Glucose Lactic Acid Calcium Magnesium Total Bilirubin Direct Bilirubin AST ALT Alkaline Phosphatase Total Protein Albumin Lipase Beta HCG, Quant Urine Color Urine Appearance Urine pH Ur Specific [place] Urine Protein Urine Glucose (UA) Urine Ketones Urine Blood Urine Nitrite Ur Leukocyte Esterase Urine Test COVID-19 (JOHAN) Negative COVID-19 Clin Com See Note Airway Mallampati Class: II TM Dist: >3cm Neck ROM: Full Assessment and Plan Assessment Anesthesia Assessment: Anesthesia Plan Discussed and Chart Reviewed Final Anesthetic Review Family History of Problems with Anesthesia: No History of Problems with Anesthesia: No NPO: Yes ASA Class: I Final Preanesthetic Review: No Changes in Pt Med Stat, Meds/Allgs Chart Reviewed, Consent Obtained/Reviewed and Anes Risks/Benef Reviewed Patient Risk: Intermediate Procedure Risk: Intermediate Anesthetic Plan Anesthetic Plan: GA Disposition: Standard PACU
--- NOTE | 2021-09-23 14:47 | W.PM.OPN ---
Operative Note Operative Note Date of Service: 09/23/21 Narrative: Preoperative diagnosis: Acute appendicitis Postoperative diagnosis: Same Procedure: Laparoscopic appendectomy Surgeon: Sourav Gomez MD Medical Staff Physician: Lainey Monsalve PA-C Anesthesia: General endotracheal Indications for procedure:20 year old female patient with complaints of abdominal pain of 1 weeks duration presenting to the ED with increased RLQ pain. She was found to be tender in the RLQ; WBC was elevated and CT positive for acute appendicitis. Operative findings:Acute non-ruptured appendicitis Specimen: appendix Estimated blood loss:1 ml Complications: none Procedure details: Patient was brought to the OR and placed in a supine position. After administering general anesthesia the patient's abdomen was prepped with ChloraPrep and draped in a sterile fashion. A surgical time-out was called and consent confirmed. Patient received preoperative antibiotics and Venodyne boots were in place. Local anesthesia consisting of 0.25% Sensorcaine without epinephrine was infiltrated in periumbilical region. A 5 mm incision was made below the umbilicus and carried down through subcutaneous tissue. A Veress needle was then inserted while elevating abdominal cavity with towel clips. After a positive drop test the abdomen was insufflated to a pressure of 15 mm of mercury. The Veress needle was removed and a 5 mm trocar inserted. The camera was then inserted in the abdomen explored. A 2nd 5 mm trocars placed in the lower midline. A 12 mm trocar was then placed in the left lower quadrant. The patient was then placed in a Trendelenburg position and rotated to the left. The appendix was identified in the right lower quadrant and brought up using blunt dissecting clamps. The mesentery of the appendix was then divided using the LigaSure. The appendiceal artery was cauterized and divided using the LigaSure. Dissection was continued down to the base of the cecum. An Endo-OLAMIDE stapler with a purple reload was then used to divide the appendix at the base with the cecum. The appendix was then placed in Endo-Catch bag and brought out through the left lower quadrant incision. The abdomen was then irrigated with saline solution and suctioned dry. Wounds were checked for hemostasis. CO2 was then evacuated from the abdominal cavity and all trocars removed. Fascia was closed in the left lower quadrant incision using a [id number] Polysorb suture. Skin was closed at all incisions using a subcuticular 4-0 Polysorb suture. Steri-Strips 2 x 2 gauze and Tegaderm were then applied. The patient tolerated the procedure well. Sponge, instrument, needle counts reported as correct. The patient was transferred to PACU in stable condition.
[2021-09-23] MEDS: fentaNYL citrate/PF 100 MCG/2 ML VIAL 50 MCG IVPUSH ×2 (15:04→15:20)
[2021-09-23] MEDS: 0.9 % Sodium Chloride Flush 3 ML SYRINGE IVFLUSH (18:45)
[2021-09-23] MEDS: oxyCODONE HCl Immed Release 5 MG TABLET PO (18:57)
[2021-09-24] MEDS: oxyCODONE HCl Immed Release 5 MG TABLET PO (03:46)
[2021-09-24 04:00] VITALS: BP 117/54; PULSE 71; RESP 18; TEMP 37; O2SAT 98
[2021-09-24] MEDS: Lactated Ringers 1,000 ML 100 ML IVCONT ×2 (04:37→15:24)
[2021-09-24 07:42] VITALS: BP 99/58; PULSE 75; RESP 18; TEMP 36.6; O2SAT 100
--- NOTE | 2021-09-24 09:03 | P.PNGS_ITS ---
Subjective Subjective Date of Service: 09/24/21 Interval history: Feels ok this morning. Sore at incision sites, mostly umbilical. Says oxycodone just makes her tired. Tolerating diet. Ambulated to bathroom without difficulty. Does c/o bloating. Physical Exam Vital Signs: Vital Signs: Last Vital Signs Temp 98 F 09/24/21 07:42 Pulse 75 09/24/21 07:42 Resp 18 09/24/21 07:42 BP 99/58 L 09/24/21 07:42 Pulse Ox 100 09/24/21 07:42 BMI result Body Mass Index 23.0 Const: General: comfortable and no acute distress Orientation/consciousness: patient oriented x3 Resp: Effort & Inspection: normal respiratory effort GI: Inspection: No distended and Yes incision (dressings c/d/i) Palpation (GI): Soft to palpation, Tenderness to palpation present (GI) (mild, incisional), no guarding and not rigid Skin: General skin exam: no rashes or lesions noted Neuro: General: patient oriented x3 Extrem: General: Yes no clubbing, cyanosis or edema Objective Data Active Medications Acetaminophen (Acetaminophen 325 Mg Tablet) 650 mg PO Q6H PRN PRN Reason: Pain, Mild (Pain Scale 1-3) Lactated Ringer's (Lr) 1,000 mls @ 100 mls/hr IVCONT .Q10H BIB[place]NA Last Admin: 09/24/21 04:37 Dose: 100 mls/hr Documented by: INA Melatonin (Melatonin 3 Mg Tablet) 3 mg PO BEDTIME PRN PRN Reason: Insomnia Morphine Sulfate (Morphine Sulfate 2 Mg/Ml Cartridge) 3 mg IVPUSH Q3H PRN; Protocol PRN Reason: Pain, Severe (Pain Scale 7-10) Ondansetron HCl (Ondansetron Hcl 4 Mg/2 Ml Vial) 4 mg IVPUSH Q8H PRN PRN Reason: Nausea and Vomiting Last Admin: 09/23/21 18:57 Dose: 4 mg Documented by: DEJAH Oxycodone HCl (Oxycodone Hcl Immed Release 5 Mg Tablet) 5 mg PO Q4H PRN PRN Reason: Pain, Moderate (Pain Scale 4-6 Last Admin: 09/24/21 03:46 Dose: 5 mg Documented by: INA Pharmacy Consult (Consult Rx Perform Med Rec) 1 each MISCELLANE ONCE PRN PRN Reason: Consult order Sodium Chloride (0.9 % Sodium Chloride Flush 3 Ml Syringe) 3 ml IVFLUSH QSHIFT [place]NA Last Admin: 09/24/21 08:11 Dose: Not Given Documented by: JOE Non-Admin Reason: IV Running Labs CBC & Chem 7: 09/23/21 08:37 09/23/21 08:37 Labs: Laboratory Results - last 24 hr 09/23/21 09/23/21 09/23/21 08:37 08:37 08:37 Neutrophils % (Manual) Cancelled Band Neutrophils % Cancelled Lymphocytes % (Manual) Cancelled Atypical Lymphs % (Man) Cancelled Monocytes % (Manual) Cancelled Eosinophils % (Manual) Cancelled Basophils % (Manual) Cancelled Metamyelocytes % Cancelled Myelocytes % Cancelled Promyelocytes % Cancelled Blast Cells % (Manual) Cancelled Plasma Cell % (Manual) Cancelled Abs Neuts (Manual) Cancelled Lymphocytes # (Manual) Cancelled Atyp Lymphs # (Manual) Cancelled Monocytes # (Manual) Cancelled Eosinophils # (Manual) Cancelled Basophils # (Manual) Cancelled Metamyelocytes # Cancelled Myelocytes # Cancelled Promyelocytes # Cancelled Blast Cells # Cancelled Plasma Cell # (Manual) Cancelled Nucleated RBCs Cancelled Differential Comment Cancelled Hypersegmented Neuts Cancelled Smudge Cells Cancelled Toxic Granulation Cancelled Toxic Vacuolation Cancelled Dohle Bodies Cancelled Lazarus Rods Cancelled WBC Morphology Comment Cancelled Platelet Estimate Cancelled Large Platelets Cancelled Giant Platelets Cancelled Plt Morphology Comment Cancelled RBC Morphology Cancelled Polychromasia Cancelled Hypochromasia Cancelled Basophilic Stippling Cancelled Microcytosis Cancelled Macrocytosis Cancelled Spherocytes Cancelled Pappenheimer Bodies Cancelled Sickle Cells Cancelled Target Cells Cancelled Tear Drop Cells Cancelled Ovalocytes Cancelled Stomatocytes Cancelled [place] Bodies Cancelled Raul Cells Cancelled Acanthocytes (Spur) Cancelled Rouleaux Cancelled Schistocytes Cancelled Anion Gap 9 L Estim Creat Clear Calc 98.4 Estimated GFR > 60 Random Glucose 95 Lactic Acid Calcium 9.3 Magnesium 2.0 Total Bilirubin 0.4 Direct Bilirubin 0.2 AST 12 ALT 6 Alkaline Phosphatase 62 Total Protein 7.3 Albumin 4.2 Lipase 25 Beta HCG, Quant < 2 COVID-19 (JOHAN) COVID-19 Clin Com 09/23/21 09/23/21 11:19 11:25 Neutrophils % (Manual) Band Neutrophils % Lymphocytes % (Manual) Atypical Lymphs % (Man) Monocytes % (Manual) Eosinophils % (Manual) Basophils % (Manual) Metamyelocytes % Myelocytes % Promyelocytes % Blast Cells % (Manual) Plasma Cell % (Manual) Abs Neuts (Manual) Lymphocytes # (Manual) Atyp Lymphs # (Manual) Monocytes # (Manual) Eosinophils # (Manual) Basophils # (Manual) Metamyelocytes # Myelocytes # Promyelocytes # Blast Cells # Plasma Cell # (Manual) Nucleated RBCs Differential Comment Hypersegmented Neuts Smudge Cells Toxic Granulation Toxic Vacuolation Dohle Bodies Lazarus Rods WBC Morphology Comment Platelet Estimate Large Platelets Giant Platelets Plt Morphology Comment RBC Morphology Polychromasia Hypochromasia Basophilic Stippling Microcytosis Macrocytosis Spherocytes Pappenheimer Bodies Sickle Cells Target Cells Tear Drop Cells Ovalocytes Stomatocytes [place] Bodies Raul Cells Acanthocytes (Spur) Rouleaux Schistocytes Anion Gap Estim Creat Clear Calc Estimated GFR Random Glucose Lactic Acid 0.8 Calcium Magnesium Total Bilirubin Direct Bilirubin AST ALT Alkaline Phosphatase Total Protein Albumin Lipase Beta HCG, Quant COVID-19 (JOHAN) Negative COVID-19 Clin Com See Note Procedures Date of Service Date of Service: 09/24/21 Progress Note: A&P Assessment and plan (1) Acute appendicitis: Status: Acute (2) S/P laparoscopic appendectomy: Status: Acute Plan 20 year old female admitted with acute appendicitis now POD #1 s/p lap appy. Doing well post op. VSS. Abd with appropriate post op tenderness, dressings in tact. Encouraged to ambulate halls today. Will reassess after lunch. If comfortable, stable for discharge to home today. Patient comfortable with plan. Will change oxycodone to norco for analgesia. Time Spent With Patient Time: Total time spent is greater than 50% in coordination of care (as documented) at patient's floor/unit and/or counseling patient: Quality Stroke Does the patient have a stroke diagnosis?: No VTE Prior VTE?: No VTE Risk Level:: Surgical - low VTE Device Contraindication: N/A - Device Ordered VTE Drug Contraindication: Treatment Not Indicated
--- NOTE | 2021-09-24 09:36 | MHC.CM.PN ---
EMR REVIEWED, PT ADMITTED W/ACUTE APPENDICITIS S/P LAP APPENDECTOMY POD#1, CM MET W/PT WHO IS A&OX4, PT REPORTS SHE LIVES W/HER MOTHER, HAS NO DME AND NO HOME SERVICES, PT IS A STUDENT AND WORKS AND IS REQUESTING RETURN TO WORK AND SCHOOL LETTERS. PT DOES NOT REMEMBER THE NAME OF HER PCP HOWEVER KNOW PCP IS LOCATED AT [facility], PT REPORTS RECEIVING [employer] VACCINE X3 AND EDUCATED ON HCP'S AND CURRENTLY DECLINES. D/C PLAN: HOME SELF-CARE W/OUPT FOLLOW-UP IN SURGEONS OFFICE, PT'S MOTHER WILL TRANSPORT.
[2021-09-24 10:42] VITALS: BP 102/53; PULSE 84; RESP 18; TEMP 37.1; O2SAT 99
--- NOTE | 2021-09-24 13:55 | MHC.CM.PN ---
REFERRAL PLACED TO FS PT HAS NOT HAD INSURANCE SINCE SHE TURNED 19, PT WAS PREVIOUSLY ON MH UNDER HER MOTHERS NAME, [facility] WAS GIVEN PT CONTACT INFO.
[2021-09-24 15:58] VITALS: BP 104/63; PULSE 79; RESP 18; TEMP 36.7; O2SAT 100
[2021-09-24 17:00] VITALS: O2SAT 99
[2021-09-24 19:04] VITALS: BP 102/50; PULSE 88; RESP 18; TEMP 37.2; O2SAT 99
[2021-09-24] MEDS: HYDROcodone Bit/Acetam 5/325 TABLET 1 TAB PO (19:40)
[2021-09-25] VITALS: BP 99/55; PULSE 70; RESP 14; TEMP 36.8; O2SAT 99
[2021-09-25] MEDS: Lactated Ringers 1,000 ML 100 ML IVCONT (02:17)
[2021-09-25 03:43] VITALS: BP 104/65; PULSE 85; RESP 16; TEMP 36.8; O2SAT 99
--- NOTE | 2021-09-25 06:53 | HO.POSTANES ---
Post Anesthesia Evaluation Post Anesthesia Evaluation Vital Signs: Vital Signs Temp Pulse Resp BP Pulse Ox 09/25/21 03:43 98.2 F 85 16 104/65 99 09/25/21 00:00 98.3 F 70 14 99/55 L 99 09/24/21 19:04 98.9 F 88 18 102/50 L 99 Anesthesia: General Endotracheal-GETA Mental Status: Awake Pain Control: Satisfactory Nausea/Vomiting: None Hydration: Adequate Anesthesia-Related Issues: No Anes. Related Issues
[2021-09-25 07:41] VITALS: BP 96/61; PULSE 88; RESP 18; TEMP 36.8; O2SAT 100
--- NOTE | 2021-09-25 08:58 | P.PNGS_ITS ---
Subjective Subjective Date of Service: 09/25/21 Interval history: Feels better this morning. Shoulder pain has resolved. Tolerating diet. Wants to go home. Physical Exam Vital Signs: Vital Signs: Last Vital Signs Temp 98.2 F 09/25/21 07:41 Pulse 88 09/25/21 07:41 Resp 18 09/25/21 07:41 BP 96/61 09/25/21 07:41 Pulse Ox 100 09/25/21 07:41 BMI result Body Mass Index 23.0 Const: General: comfortable, no acute distress and alert Orientation/consciousness: patient oriented x3 Resp: Effort & Inspection: normal respiratory effort GI: Inspection: No distended and Yes incision (dressings c/d/i) Palpation (GI): Soft to palpation and Tenderness to palpation present (GI) (mild incisional) Percussion: Yes normal to percussion Skin: General skin exam: no rashes or lesions noted Neuro: General: patient oriented x3 Objective Data Active Medications Acetaminophen (Acetaminophen 325 Mg Tablet) 650 mg PO Q6H PRN PRN Reason: Pain, Mild (Pain Scale 1-3) Hydrocodone Bitart/Acetaminophen (Hydrocodone Bit/Acetam 5/325 Tablet) 1 tab PO Q4H PRN PRN Reason: Pain, Moderate (Pain Scale 4-6 Last Admin: 09/24/21 19:40 Dose: 1 tab Documented by: MILLIE Hydrocodone Bitart/Acetaminophen (Hydrocodone Bit/Acetam 10/325 Tablet) 1 tab PO Q4H PRN PRN Reason: Pain, Severe (Pain Scale 7-10) Benzocaine (Throat Lozenge, Medicated Lozenge) 1 lozenge MUCOUS MEM Q2H PRN PRN Reason: Sore Throat Lactated Ringer's (Lr) 1,000 mls @ 100 mls/hr IVCONT .Q10H BIBIANA Last Admin: 09/25/21 02:17 Dose: 100 mls/hr Documented by: STELLA Melatonin (Melatonin 3 Mg Tablet) 3 mg PO BEDTIME PRN PRN Reason: Insomnia Morphine Sulfate (Morphine Sulfate 2 Mg/Ml Cartridge) 3 mg IVPUSH Q3H PRN; Protocol PRN Reason: Pain, Severe (Pain Scale 7-10) Ondansetron HCl (Ondansetron Hcl 4 Mg/2 Ml Vial) 4 mg IVPUSH Q8H PRN PRN Reason: Nausea and Vomiting Last Admin: 09/23/21 18:57 Dose: 4 mg Documented by: DEJAH Pharmacy Consult (Consult Rx Perform Med Rec) 1 each MISCELLANE ONCE PRN PRN Reason: Consult order Sodium Chloride (0.9 % Sodium Chloride Flush 3 Ml Syringe) 3 ml IVFLUSH QSHIFT BIBIANA Last Admin: 09/25/21 08:12 Dose: Not Given Documented by: CARLY Non-Admin Reason: IV Running Labs CBC & Chem 7: 09/23/21 08:37 09/23/21 08:37 Microbiology Microbiology Results: Microbiology 09/23/21 11:19 Blood Culture - Preliminary Blood - Venous No growth after 24 hours. 09/23/21 11:19 Blood Culture - Preliminary Blood - Venous No growth after 24 hours. Procedures Date of Service Date of Service: 09/25/21 Progress Note: A&P Assessment and plan (1) S/P laparoscopic appendectomy: Status: Acute (2) Acute appendicitis: Status: Acute Plan 20 year old female admitted with acute appendicitis now POD #2 s/p lap appy. Improved today, pain well controlled. Referred pain resolved. Tolerating diet. VSS. Abd exam benign. She feels ready for discharge to home today. Stable for d/ c to home. F/u in office with Dr. Gomez in 1 week. Patient and family comfortable with plan. Time Spent With Patient Time: Total time spent is greater than 50% in coordination of care (as documented) at patient's floor/unit and/or counseling patient: Quality Stroke Does the patient have a stroke diagnosis?: No VTE Prior VTE?: No VTE Risk Level:: Surgical - low VTE Device Contraindication: N/A - Device Ordered VTE Drug Contraindication: Treatment Not Indicated
--- NOTE | 2021-09-25 10:31 | PM.DS ---
DS: Providers Provider Date of Service: 09/25/21 Primary care physician: [facility] Attending physician on admission: Sourav Gomez Attending physician on discharge: Sourav Gomez DS: Diagnosis Discharge Diagnosis (1) S/P laparoscopic appendectomy: Status: Acute (2) Acute appendicitis: Status: Acute DS: Summary Hospital Course Hospital Course: BRIEF HPI: Gabo Nava is a 20 year old female presenting with complaints of abdominal pain of 2 weeks duration.? The pain was initially felt in the epigastrium but now is become localized to the right lower quadrant.? The pain is associated with nausea, vomiting, anorexia, but no fever, chills, diarrhea or constipation.? Pain seems to increase with movement/walking.? She subsequently presented to the emergency department was noted to be tender in the right lower quadrant over McBurney's point.? Laboratories revealed a mildly elevated WBC.? CT of the abdomen and pelvis revealed a thickened appendix with fecalith and surrounding fluid.? No air bubbles are noted surrounding the appendix.? Findings are consistent with acute appendicitis. HOSPITAL COURSE: The patient was admitted to the surgical service for further treatment of the acute appendicitis.? Findings were discussed in detail with the patient and her mother.? Because of the presence of a fecalith laparoscopic appendectomy was recommended.? After discussion of the procedure, risks, and alternatives, the patient consented to a laparoscopic or possible open appendectomy.? She was added onto the operative schedule for that day. On 09/23/21, a laparoscopic appendectomy was performed by Dr. Gomez without complication. The patient tolerated the procedure well, completed routine recovery in PACU and was transferred to the medical/surgical floor for observation. The patient had an uncomplicated recovery course. She was tolerating a solid diet without N/V and ambulating on POD #1. Her analgesics were changed to [place] and oxycodone was discontinued which controlled her pain better. She was reassessed later in the day and had R shoulder referred pain and did not feel comfortable going home. On POD #2, she felt improved with resolution of the right shoulder pain and had good incisional pain control. Her abdomen remained benign with appropriate post op tenderness and c/d/i dressings. She felt ready for discharge. She was discharged to home on 09/25/21 in stable condition. She is to follow up with Dr. Gomez in office in 1 week. Status at Discharge Functional status at discharge: independent ambulation Overall status at discharge: patient is progressing back to baseline Time Spent with Patient Time attestation: Total time spent providing and/or coordinating discharge services: Discharge coordination time: Less than 30 minutes Quality: Safe Use of Opioids Does Pt have an Active Cancer Diagnosis on the Problem List?: No Quality: Stroke Does the patient have a stroke diagnosis?: No Physical Exam Vital Signs: Vital Signs: Last Vital Signs Temp 98.2 F 09/25/21 07:41 Pulse 88 09/25/21 07:41 Resp 18 09/25/21 07:41 BP 96/61 09/25/21 07:41 Pulse Ox 100 09/25/21 07:41 BMI result Body Mass Index 23.0 Const: General: comfortable, no acute distress and alert Orientation/consciousness: patient oriented x3 GI: Inspection: No distended and Yes incision (dressings c/d/i) Palpation (GI): Soft to palpation, Tenderness to palpation present (GI) (mild, incisional), no guarding and not rigid Skin: General skin exam: no rashes or lesions noted Neuro: General: patient oriented x3 DS: Data Data Completed and Pending Pending studies at discharge: Pending at discharge 09/23/21 14:25 Surgical [PTH] Routine Labs on day of discharge: Preliminary micro results at discharge 09/23/21 11:19 Blood Culture - Preliminary Blood - Venous No growth after 24 hours. 09/23/21 11:19 Blood Culture - Preliminary Blood - Venous No growth after 24 hours. Discharge Plan Discharge Patient Disposition: Home, Self-Care Referrals: [facility] [Primary Care Provider] - 1 Week Sourav Gomez MD [Physician] - 1 Week Discharge Medications: New hydrocodone-acetaminophen 5-325 mg Tablet 1 tab PO Q4H PRN (Reason: Pain, Moderate (Pain Scale 4-6) Qty: 14 0RF Discharge Orders: Discharge Order (Routine); Ordered 09/25/21 Ordered By: Sourav Gomez Stand Alone Forms: Work/School Release Activity Restrictions/Additional Instructions: If the incision area is tender, you may apply an ice pack for short intervals (No more than 20 minutes on, followed by at least 20 minutes off). Do not apply heat. Do not use creams, lotions, or topical antibiotics unless instructed to do so by your surgeon. These can cause infection or allergic reaction. Ok to shower. Remove clear dressings 3 days following your procedure. You have steri strips (small white cloth strips) covering your incision- these will fall off ~1 week. No heavy lifting (>10lbs) or strenuous activity! Follow up in office with Dr. Gomez in 1 week. ([phone]) Call Your Doctor If: -Your temperature exceeds 101.5? F -You experience excessive pain or swelling -You have an unexpected reaction to medication -You have excessive bleeding -You experience continued vomiting/nausea -Your incision begins to separate -Your incision shows signs of infection such as increased redness, swelling, excessive pain, drainage (light blood or clear fluid is normal) or heat Discharge Date/Time: 09/25/21 09:24
--- NOTE | 2021-09-25 12:05 | MHC.CM.PN ---
NURSE CASE MANGER NOTE ELECTRONIC MEDICAL RECORD REVIEWED WELL THE DISCHAGRE PLAN WHEN CASE MANGER WENT TO SEE PATIENT SHE HAD ALREADY BEEN DISCHARGED CASE DISUCSSED WITH STAFF NURSE [facility] TRANSPORTATION N PATIENTS MOTHER PCP [facility]
== END 2021-09-25 09:24 | disposition home or self-care (01) ==
LOC: HO.ED 11:21 → HO.SSS 13:28 → HO.S3 15:51
PROVIDERS: Physician Assistant; Emergency Provider Emergency Medicine; Visit Provider Surgery
PROC: 0DTJ4ZZ Resection of Appendix, Percutaneous Endoscopic Approach (ICD-10-PCS; CPT 44970; principal; 2021-09-23 13:30)
DX: K35.80 Unspecified acute appendicitis (principal); C7A.020 Malignant carcinoid tumor of the appendix; C7B.8 Other secondary neuroendocrine tumors; K38.1 Appendicular concretions; R53.83 Other fatigue; Z20.822 Contact with and (suspected) exposure to COVID-19
CPT/HCPCS: 44970; 36415; 74177; 80048; 80076; 81003; 81025; 83605; 83690; 83735; 84702; 85025; 87040; 87635; 88304; 88341; 88342; 88360; 96361; 96374; 96375; 99285; J0131; J1100; J1885; J2250; J2405; J3010; Q9967

== ENCOUNTER → 2021-10-07 13:31 | Outpatient (BNVA) | payer MEDICAID, SELFPAY | PROVIDERS: Visit Provider Surgery | DX: D3A.020 Benign carcinoid tumor of the appendix (principal) | CPT/HCPCS: 99212 ==

== ENCOUNTER 2022-04-28 10:58 | Emergency (ER) | payer MEDICAID, SELFPAY ==
[2022-04-28 11:27] VITALS: BP 114/76; PULSE 80; RESP 18; TEMP 36.6; O2SAT 100; BMI 23.8
--- NOTE | 2022-04-28 11:28 | ED_ITS ---
HPI - General Adult General Chief complaint: Upper Respiratory Symptoms Stated complaint: Flu Symptoms Time Seen by Provider: 04/28/22 12:38 Source: patient Mode of arrival: ambulatory History of Present Illness HPI narrative: 21-year-old female with presentation a viral symptoms with body aches, nasal condition, dry cough, sore throat as well as mild nausea. Related Data Previous Rx's Medication Instructions Recorded ferrous sulfate 325 mg (65 mg 325 mg PO DAILY #90 tabs 10/19/21 iron) tablet ondansetron 4 mg disintegrating 4 mg PO Q6H PRN nausea and 04/28/22 tablet vomiting #10 tabs Allergies Allergy/AdvReac Type Severity Reaction Status Date / Time No Known Allergies Allergy Verified 04/28/22 11:27 [No Known Allergies*] Review of Systems Review of Systems: Pertinent positives and negatives as stated in HPI 10 point review of systems is otherwise negative. [facility] Past Medical History Source: nursing notes reviewed Medical History Acute appendicitis Asthma No known health problems Surgical History S/P laparoscopic appendectomy Family History Family History Maternal Grandmother Colon cancer Maternal Grandfather Brain cancer Mother Brain tumor Social History Social History Household Members: Family Housing: Apartment Are you a primary patient care assistant to a significant other at home: No Do you presently have visiting nurse or other home services: No Patient Tobacco Use Status: Never used Tobacco e-Cigarette/Vaping Use: Never Used service: No Current occupational status: employed and student Physical Exam ED Vital Signs: Vital Signs - 24 hr 04/28/22 11:27 Temperature 97.9 F Pulse Rate 80 Respiratory Rate 18 Blood Pressure 114/76 Pulse Oximetry 100 Oxygen Delivery Method Room Air BMI result Body Mass Index 23.8 Course Course Course Narrative: VSS reviewed GEN: NAD HEENT: NC/AT,Ears clear, throat clear and no adenopathy, nasal congestion CVS: RRR, no murmurs Lungs: CTAB, no wheeze, rhonchi, rales ABD: NT/ND SKIN: pink, warm, dry Patient appears well and suspect a viral cold and/or flu. - SARS Medical Decision Making Lab Data Labs: Lab Results 04/28/22 Range/Units 11:31 Influenza Type A (PCR) NEGATIVE (Negative) Influenza Type B (PCR) NEGATIVE (Negative) RSV RNA Qual (PCR) POSITIVE A (Negative) SARS-CoV-2 RNA (RT-PCR) NEGATIVE (Negative) Discharge Plan Discharge Clinical Impression: Viral syndrome, RSV infection Patient Disposition: Home, Self-Care Instructions: Respiratory Syncytial Virus (ED), Viral Syndrome (ED) Additional Instructions: Tylenol 1000 mg, orally, every 6 hours as needed for pain control. Do not exceed 4000 mg within 24 hours. Ibuprofen 400 mg, orally with milk or food, every 6 hours as needed for pain control. You may take this medication with the Tylenol for added symptom relief. Follow-up with your primary care provider in the next 1-2 days for re-evaluation further outpatient management. Increase water intake that you consume and you have been given medication for nausea and vomiting control. Return to the ER for worsening symptoms. Prescriptions: New ondansetron 4 mg tablet,disintegrating 4 mg PO Q6H PRN (Reason: nausea and vomiting) Qty: 10 0RF No Action ferrous sulfate 325 mg (65 mg iron) Tablet 325 mg PO DAILY Qty: 90 3RF Referrals: [facility] [Primary Care Provider] - Stand Alone Forms: Work/School Release
[2022-04-28 12:16] LABS: Influenza A PCR NEGATIVE (Negative); Influenza B PCR NEGATIVE (Negative); Resp Syncy Virus RNA Qual PCR POSITIVE (Negative); SARS COV2 PCR INHOUSE NEGATIVE (Negative)
== END 2022-04-28 13:21 | disposition home or self-care (01) ==
LOC: HO.ED 13:07
PROVIDERS: Emergency Provider Student in an Organized Health Care Education/Training Program
DX: J06.9 Acute upper respiratory infection, unspecified (principal); B97.4 Respiratory syncytial virus as the cause of diseases classified elsewhere; R05.9 Cough, unspecified; Z20.822 Contact with and (suspected) exposure to COVID-19
CPT/HCPCS: 0241U; 99282; 99283

== ENCOUNTER 2022-07-14 08:51 | Outpatient (REF) | payer MEDICAID, SELFPAY ==
[2022-07-14 09:22] LABS: COVID-19 Test Positive (Negative); IDNOW Serial# BCCEAD1C
== END 2022-07-14 08:52 | disposition home or self-care (01) ==
LOC: HO.LAB 08:51
PROVIDERS: Visit Provider Internal Medicine
DX: Z20.822 Contact with and (suspected) exposure to COVID-19 (principal)
CPT/HCPCS: 87635; C9803

== ENCOUNTER 2022-08-17 07:57 | Emergency (ER) | payer MEDICAID, SELFPAY ==
--- NOTE | ~2022-08-17 | XR_ITS ---
EXAMINATION: XR CHEST CLINICAL INFORMATION: Chest tightness, cough. COMPARISON: 04/29/2021 chest radiographs. TECHNIQUE: Frontal view of the chest was obtained. FINDINGS: No significant abnormality is noted involving the heart, lungs, mediastinum, bony thorax or soft tissues. XR/XR chest 1V IMPRESSION: No acute cardiopulmonary process.
[2022-08-17 08:01] VITALS: BP 132/86; PULSE 96; RESP 19; TEMP 36.6; O2SAT 98; BMI 23.9
--- NOTE | 2022-08-17 08:49 | ED_ITS ---
HPI - URI/Sore Throat General Chief Complaint: Upper Respiratory Symptoms Stated Complaint: severe chest pains, body aches Time Seen by Provider: 08/17/22 08:17 Source: patient Mode of arrival: ambulatory Limitations: no limitations History of Present Illness HPI Narrative: 21yoF with a PMHx of asthma with presenting to the ER with complaints of generalized fatigue, malaise, chills, body aches, nasal congestion, resolved sore throat, productive cough with yellow/clear thin colored mucus, chest tightness/shortness of breath/wheezing that started yesterday worse today. Patient reports that she has never been intubated or hospitalized for her asthma. She does not even have an albuterol inhaler or nebulizer. She denies any sick contacts that she is aware of, recent travel, measured fevers, dizziness, headaches, neck pain/stiffness, trouble swallowing or breathing, dyspnea on exertion, orthopnea palpitations, paresthesias, ear pain, rashes, recent falls or trauma, chest pain, nausea/vomiting/diarrhea co nstipation, abdominal pain, lower extremity edema or calf tenderness or any other symptoms complaints or concerns at this time. MD elicited complaint: cough, sore throat, rhinorrhea and nasal congestion Onset (ago): day(s) (2) Consistency: constant Severity: moderate Description of mucous: clear, watery, yellow and green Able to tolerate fluids by mouth: Yes Exacerbating factors: deep breaths Relieving factors: nothing Associated symptoms: chills, myalgias, rhinorrhea, nasal congestion, sore throat, cough and shortness of breath Treatments prior to arrival: none Related Data Previous Rx's Medication Instructions Recorded ferrous sulfate 325 mg (65 mg 325 mg PO DAILY #90 tabs 10/19/21 iron) tablet ondansetron 4 mg disintegrating 4 mg PO Q6H PRN nausea and 04/28/22 tablet vomiting #10 tabs codeine 10 mg-guaifenesin 100 mg/5 5 ml PO Q6H PRN cold symptoms #120 08/17/22 mL oral liquid (Guaifenesin AC) mL prednisone 20 mg tablet 40 mg PO DAILY inflammation 5 days 08/17/22 #10 tabs Allergies Allergy/AdvReac Type Severity Reaction Status Date / Time No Known Allergies Allergy Verified 08/17/22 08:01 [No Known Allergies*] Review of Systems Review of Systems: Constitutional : + chills/fatigue/malaise, No Weight loss, No Fever, No Night Sweats ENT/Mouth : + resolve sore throat, + nasal congestion/rhinorrhea, No Hearing loss, No Ear Pain, No Sinus Pain, No Hoarseness, No Swallowing Difficulty Eyes: No Eye Pain, No Swelling, No Redness, No Foreign Body, No Discharge, No Vision Changes Cardiovascular : No Chest Pain, No SOB, No Dyspnea on Exertion, No Orthopnea, No Edema, No Palpitations Respiratory : + Cough, + Sputum, + Wheezing, No Smoke Exposure, No Dyspnea Gastrointestinal : No Nausea, No Vomiting, No Diarrhea, No Constipation, No abdominal Pain, No Hematochezia, No Melena Genitourinary : no irregular bleeding, No Dysuria, No Urinary Frequency, No Hematuria, No Urinary Incontinence, No Urgency, No Flank Pain, No Urinary Flow Changes, No Hesitancy Musculoskeletal : No joint pain, + Myalgias, No Joint Swelling Skin : No Skin Lesions, No rash Neuro : No Weakness, No Numbness, No Paresthesias, No Loss of Consciousness, No Dizziness, No Headache Psych : No Anxiety/Panic, No Depression, No SI/HI/AH/VH, No Social Issues, Heme/Lymph: No Bruising, No Bleeding,No Lymphadenopathy Endocrine : No Polyuria, No Polydipsia, No Temperature Intolerance Yes all other systems are reviewed and are negative [facility] Past Medical History Attestation statement: The following information was validated with the patient. Source: old records reviewed and nursing notes reviewed Medical History Acute appendicitis Asthma No known health problems Surgical History S/P laparoscopic appendectomy Family History Family History Maternal Grandmother Colon cancer Maternal Grandfather Brain cancer Mother Brain tumor Social History Social History Household Members: Family Housing: Apartment Are you a primary senior care specialist to a significant other at home: No Do you presently have visiting nurse or other home services: No Patient Tobacco Use Status: Never used Tobacco e-Cigarette/Vaping Use: Never Used Advance Directives: No Advance Directives Information Provided: No service: No Current occupational status: employed and student Physical Exam Vital Signs: Vital Signs: Last Vital Signs Temp 98 F 08/17/22 08:01 Pulse 96 08/17/22 09:02 Resp 18 08/17/22 09:02 BP 132/86 08/17/22 08:01 Pulse Ox 98 08/17/22 08:01 O2 Del Method 08/17/22 08:01 BMI result Body Mass Index 23.9 Vital signs reviewed. Blood pressure normal. Pulse normal. Respiration normal. Oxygen normal. Temperature normal. Appearance: Alert. Oriented X3. No acute distress. Head: Normal external exam. Normocephalic. Atraumatic. Eyes: PERRLA. EOMI. Conjunctiva and sclera normal. Eyelids normal. ENT: EAC normal. TM's Normal. Pharynx normal. Uvula midline. Moist mucous membranes. No lesions/ulcerations or masses noted on the tongue. Normal voice. No trismus noted. No drooling noted. No muffled voice noted. Neck: Normal inspection. Neck supple. FROM. No adenopathy. Thyroid Normal. No meningeal signs. CVS: Normal heart rate and rhythm. Heart sound normal. Pulses normal throughout. No murmurs/rales/gallops. Respiratory: No respiratory distress. Painless inspiration. Breath sounds nor mal. No wheezes/rales/rhonchi noted. Chest nontender. No accessory muscle usage noted or decreased air movement noted. Abdomen: Soft and nontender. Back: Full range of motion noted. Nontender. Skin: Skin warm and dry. Normal skin color. Normal skin turgor. No rashes/lesions/lacerations noted. Extremities: Extremities exhibit normal range of motion and nontender. Neuro: Oriented X 3. No motor deficit. No sensory deficit. Reflexes normal. Normal steady gait. No focal neuro deficits noted. CN's II-XII intact bilaterally? Vascular: + radial pulses. Normal cap refill. No cyanosis noted to upper extremity nails Course Course Course Narrative: 8:30am - This patient presents with acute cough, most consistent with Viral syndrome. Differential diagnosis includes COVID, influenza, RSV. Presentation not consistent with acute bacterial pneumonia, influenza, transient airway hyperres ponsiveness. Presentation not consistent with chronic causes of cough (including GERD, postnasal discharge, medication side effect, CHF, lung cancer or mass). Plan: COVID/RSV/flu, CXR, provide albuterol inhaler and re-evaluate. Reevaluation(s) Reevaluation #1: Chest x-ray within normal limits. Patient negative for COVID/RSV/flu and strep. Patient most likely bronchitis. Will DC home with symptomatic treatment instructions return if any new or worsening symptoms to follow up with primary care provider. Patient understands agrees with this plan. Time: 09:22 Medications Administered Discontinued Medications Generic Name Dose Route Start Last Admin Trade Name Freq PRN Reason Stop Dose Admin Albuterol Sulfate 2 puff 08/17/22 08:23 08/17/22 09:01 Albuterol Sulfate 90 Mcg 8 Gm Inhaler INHALE 08/17/22 08:24 2 puff ONCE ONE Administration Medical Decision Making Lab Data MDM Lab Attestation statement: I reviewed the patient's lab results. Labs: Lab Results 08/17/22 08/17/22 Range/Units 08:30 08:45 Influenza Type A (PCR) NEGATIVE (Negative) Influenza Type B (PCR) NEGATIVE (Negative) RSV RNA Qual (PCR) NEGATIVE (Negative) SARS-CoV-2 RNA (RT-PCR) NEGATIVE (Negative) S. pyogenes GrpA RADHA Negative (Negative) Independent Interpretation I performed an independent interpretation of an: Plain X-Ray (I reviewed the chest x-ray myself agreeable radiologist report) Radiology Impression Discussion of test interpretation with radiology: I have reviewed the radiologist's reading. Radiologist Impression: FINDINGS: No significant abnormality is noted involving the heart, lungs, mediastinum, bony thorax or soft tissues. XR/XR chest 1V IMPRESSION: No acute cardiopulmonary process. Chronic Conditions Patient?s care impacted by: Other (Asthma) Discharge Plan Discharge Clinical Impression: Acute bronchitis with bronchospasm Patient Disposition: Home, Self-Care Instructions: Acute Bronchitis (ED) Prescriptions: New prednisone 20 mg tablet 40 mg PO DAILY 5 Days Qty: 10 0RF codeine-guaifenesin [Guaifenesin AC] 10-100 mg/5 mL liquid 5 ml PO Q6H PRN (Reason: cold symptoms) Qty: 120 0RF No Action ondansetron 4 mg tablet,disintegrating 4 mg PO Q6H PRN (Reason: nausea and vomiting) Qty: 10 0RF ferrous sulfate 325 mg (65 mg iron) Tablet 325 mg PO DAILY Qty: 90 3RF Referrals: [place],[facility] [Primary Care Provider] - 2 days Stand Alone Forms: Work/School Release
[2022-08-17] MEDS: Albuterol Sulfate 90 MCG 8 GM INHALER 2 PUFF INHALE (09:01)
[2022-08-17 09:02] VITALS: PULSE 96; RESP 18; O2SAT 98
[2022-08-17 09:11] LABS: IDNOW Serial# 08D9AD1C; Strep A Nucleic Acid Negative (Negative)
[2022-08-17 09:15] LABS: Influenza A PCR NEGATIVE (Negative); Influenza B PCR NEGATIVE (Negative); Resp Syncy Virus RNA Qual PCR NEGATIVE (Negative); SARS COV2 PCR INHOUSE NEGATIVE (Negative)
== END 2022-08-17 09:33 | disposition home or self-care (01) ==
PROVIDERS: Physician Assistant Medical; Emergency Provider Emergency Medicine
DX: J20.9 Acute bronchitis, unspecified (principal); R07.9 Chest pain, unspecified; J34.89 Other specified disorders of nose and nasal sinuses; Z20.822 Contact with and (suspected) exposure to COVID-19
CPT/HCPCS: 0241U; 71045; 87651; 94640; 99283; 99284

== ENCOUNTER 2022-08-20 10:27 | Emergency (ER) | payer MEDICAID, SELFPAY ==
--- NOTE | ~2022-08-20 | CT_ITS ---
EXAMINATION: CT HEAD WITHOUT CONTRAST CLINICAL INFORMATION: Headache and epistaxis. COMPARISON: 11/13/2014 TECHNIQUE: Contiguous axial imaging was performed from the skull base to vertex without intravenous administration of contrast. This CT examination was performed using dose optimization techniques as appropriate, variously including the following: *Automated exposure control *Adjustment of mA and/or kV according to patient size (this includes techniques or standardized protocols for targeted exams where dose is matched to indication/reason for exam; i.e. extremities or head) *Use of iterative reconstruction technique DLP: 549 mGy-cm FINDINGS: The brain parenchyma has normal attenuation. The west-white matter differentiation is well preserved. No evidence of an acute major vascular territory infarction. No intracranial hemorrhage, extra-axial fluid collection, focal mass effect or midline shift. The ventricles have normal size and configuration; no hydrocephalus. The brainstem and cerebellum have a normal appearance. The cerebellar tonsils are in normal position. The calvarium is intact. Paranasal sinuses are partially included in the [id number]. There is mucosal thickening of the left anterior sphenoid sinus and bilateral ethmoid air cells. No air-fluid levels within the visualized paranasal sinuses. The mastoid air cells and middle ear cavities are well aerated. The visualized portions of the orbits and globes are unremarkable. The temporomandibular joints are normal. CT/CT head/brain wo IV con IMPRESSION: * No acute intracranial pathology. * Mucosal thickening of ethmoid air cells and sphenoid sinus without air-fluid levels of the paranasal sinuses.
[2022-08-20 10:35] VITALS: BP 115/62; PULSE 74; RESP 18; TEMP 36.4; O2SAT 100; BMI 24.7
--- NOTE | 2022-08-20 11:47 | PC.NURSE ---
Patient with mother at bedside reports headache with bloody nose no bleeding currently. Patient denies history of migraine. Mother and patient nervous mother has history of brain tumor patients sister has history of brain aneurysm. AOx 4 neuros intact no distress noted. Ambulatory with steady gait no slurring of words will CTM
--- NOTE | 2022-08-20 12:00 | PC.NURSE ---
Patient recently seen in ED for body aches sinus pain will await provider will CTM
--- NOTE | 2022-08-20 12:08 | PC.NURSE ---
Patient reports taking aleve [employer] at approx 0800 will CTM
--- NOTE | 2022-08-20 13:00 | ED_ITS ---
HPI - Headache General Chief Complaint: Headache Stated Complaint: Nose bleed/Severe headache Time Seen by Provider: 08/20/22 12:34 Source: patient and family Mode of arrival: ambulatory Limitations: no limitations History of Present Illness HPI Narrative: 21 yo female presents to the ER for evaluation of headache and bloody nose that stated today when she was at work. She states she has not felt well for the last couple of days, recently seen here and diagnosed with bronchitis. She reports developing spontaneous bilateral nose bleed when she was at work around 10am. She also had a severe headache at that time. She applied pressure to her nose and the bleeding stopped after 5 minutes. She has a residual 6/10 generalized headache. No numbness, weakness, dizziness. Her mother reports a personal history of a brain tumor and another family member with an aneursym. MD elicited complaint: headache Onset (ago): hour(s) Onset description: suddenly Location: generalized Severity: severe Pain scale (0-10): 6 Quality & Timing: aching Exacerbating factors: none Relieving factors: NSAIDs Context: occurred at rest Associated symptoms: other (epistaxis) Treatments prior to arrival: ibuprofen Related Data Previous Rx's Medication Instructions Recorded ferrous sulfate 325 mg (65 mg 325 mg PO DAILY #90 tabs 10/19/21 iron) tablet ondansetron 4 mg disintegrating 4 mg PO Q6H PRN nausea and 04/28/22 tablet vomiting #10 tabs codeine 10 mg-guaifenesin 100 mg/5 5 ml PO Q6H PRN cold symptoms #120 08/17/22 mL oral liquid (Guaifenesin AC) mL prednisone 20 mg tablet 40 mg PO DAILY inflammation 5 days 08/17/22 #10 tabs Allergies Allergy/AdvReac Type Severity Reaction Status Date / Time No Known Allergies Allergy Verified 08/20/22 10:40 [No Known Allergies*] Review of Systems Review of Systems: Yes all other systems are reviewed and are negative PMFSH Past Medical History Medical History Acute appendicitis Asthma No known health problems Surgical History S/P laparoscopic appendectomy Family History Family History Maternal Grandmother Colon cancer Maternal Grandfather Brain cancer Mother Brain tumor Social History Social History Household Members: Family Housing: Apartment Are you a primary health care sanitary technician to a significant other at home: No Do you presently have visiting nurse or other home services: No Alcohol intake: unknown Patient Tobacco Use Status: Never used Tobacco Smoked in Last 30 Days: No e-Cigarette/Vaping Use: Never Used Use of substances other than those prescribed or required for medical reasons: Unknown Advance Directives: Yes Advance Directives Information Provided: Yes Advance Directives on File: No service: No Current occupational status: employed and student Physical Exam Vital Signs: Vital Signs: Last Vital Signs Temp 97.5 F 08/20/22 10:35 Pulse 73 08/20/22 13:34 Resp 18 08/20/22 14:28 BP 108/67 08/20/22 14:28 Pulse Ox 100 08/20/22 14:28 O2 Del Method Room Air 08/20/22 14:28 BMI result Body Mass Index 24.7 Appearance: Alert. Oriented X3. No acute distress. Eyes: Pupils equal, round and reactive to light. ENT: Pharynx normal. No epistaxis present, right nare with some erythema of the septal wall, no active bleeding. No blood clots in the nares. Neck: Normal inspection. Neck supple. CVS: Normal heart rate and rhythm. Pulses normal. Respiratory: No respiratory distress. Breath sounds normal. Skin: Skin warm and dry. Normal skin color. Normal skin turgor. No rashes. Extremities: No lower extremity edema. Neuro: Oriented X 3. No motor deficit. No sensory deficit. Medications Administered Discontinued Medications Generic Name Dose Route Start Last Admin Trade Name Freq PRN Reason Stop Dose Admin Acetaminophen 975 mg 08/20/22 12:49 08/20/22 14:00 Acetaminophen 325 Mg Tablet PO 08/20/22 12:50 975 mg ONCE ONE Administration Medical Decision Making Medical Decision Making MDM Narrative: 21 yo F presents to the ER for evaluation of epistaxis episode and headache since today. Episode of epistaxis resolved after 10 minutes. Mother at bedside concerned for intracranial pathology due to family medical history. CT head was performed which is normal. Mom and patient counseled. Stable for discharge home Differential Diagnosis Differential Diagnoses: The differential diagnosis associated with the presentation includes Epistaxis, migraine headache, viral syndrome, doubt aneurysm or brain tumor Independent Interpretation I performed an independent interpretation of an: CT Scan Interpretation: No acute abnormal intracranial pathology. Radiology Impression Discussion of test interpretation with radiology: I have reviewed the radiologist's reading. Radiologist Impression: FINDINGS: The brain parenchyma has normal attenuation. The west-white matter differentiation is well preserved. No evidence of an acute major vascular territory infarction. No intracranial hemorrhage, extra-axial fluid collection, focal mass effect or midline shift. The ventricles have normal size and configuration; no hydrocephalus. The brainstem and cerebellum have a normal appearance. The cerebellar tonsils are in normal position. The calvarium is intact. Paranasal sinuses are partially included in the [id number]. There is mucosal thickening of the left anterior sphenoid sinus and bilateral ethmoid air cells. No air-fluid levels within the visualized paranasal sinuses. The mastoid air cells and middle ear cavities are well aerated. The visualized portions of the orbits and globes are unremarkable. The temporomandibular joints are normal. CT/CT head/brain wo IV con IMPRESSION: *? No acute intracranial pathology. *? Mucosal thickening of ethmoid air cells and sphenoid sinus without air-fluid levels of the paranasal sinuses. Independent Historian Clinical information obtained from an independent historian. History obtained from or confirmed by: Parent External Record Review External record reviewed: Prior outpatient labs Critical Care Time Critical Care Time Critical Care Time: No Discharge Plan Discharge Clinical Impression: Epistaxis, Headache Patient Disposition: Home, Self-Care Instructions: Nosebleed (ED), Acute Headache (ED) Additional Instructions: Your head CT was normal. If you get another nosebleed, apply strong pressure to your nose. The bleeding should resolve after several minutes. Take ibuprofen/tylenol as needed for pain. Follow up with your primary care physician. If you develop new or worsening symptoms call 911 or come back to the ER for fur ther evaluation. Prescriptions: No Action ondansetron 4 mg tablet,disintegrating 4 mg PO Q6H PRN (Reason: nausea and vomiting) Qty: 10 0RF ferrous sulfate 325 mg (65 mg iron) Tablet 325 mg PO DAILY Qty: 90 3RF prednisone 20 mg tablet 40 mg PO DAILY 5 Days Qty: 10 0RF codeine-guaifenesin [Guaifenesin AC] 10-100 mg/5 mL liquid 5 ml PO Q6H PRN (Reason: cold symptoms) Qty: 120 0RF Stand Alone Forms: Work/School Release
[2022-08-20 13:34] VITALS: BP 112/63; PULSE 73; RESP 18; O2SAT 99
[2022-08-20] MEDS: Acetaminophen 325 MG TABLET 975 MG PO (14:00)
[2022-08-20 14:28] VITALS: BP 108/67; RESP 18; O2SAT 100
== END 2022-08-20 14:47 | disposition home or self-care (01) ==
PROVIDERS: Emergency Provider Student in an Organized Health Care Education/Training Program
DX: R51.9 Headache, unspecified (principal); R04.0 Epistaxis
CPT/HCPCS: 70450; 99284

== ENCOUNTER 2023-01-11 13:53 | Emergency (ER) | payer MEDICAID, SELFPAY ==
[2023-01-11 14:34] VITALS: BP 129/81; PULSE 74; RESP 18; TEMP 36.8; O2SAT 99; BMI 22.5
--- NOTE | 2023-01-11 14:35 | ED_ITS ---
HPI - General Adult General Chief complaint: Dental/Oral Stated complaint: facial swelling Time Seen by Provider: 01/11/23 14:38 Source: patient, RN notes reviewed and old records reviewed Mode of arrival: ambulatory History of Present Illness HPI narrative: 22-year-old female with no significant past medical history presenting to the ED complaining of right-sided facial swelling and right lower dental pain since yesterday. Admits to chronically broken teeth, denies new dental procedures, dental trauma, fever/chills, drainage from area, ear pain. Admits was able to get a dentistry appointment tomorrow Onset (ago): day(s) Related Data Previous Rx's Medication Instructions Recorded ferrous sulfate 325 mg (65 mg 325 mg PO DAILY #90 tabs 10/19/21 iron) tablet ondansetron 4 mg disintegrating 4 mg PO Q6H PRN nausea and 04/28/22 tablet vomiting #10 tabs codeine 10 mg-guaifenesin 100 mg/5 5 ml PO Q6H PRN cold symptoms #120 08/17/22 mL oral liquid (Guaifenesin AC) mL prednisone 20 mg tablet 40 mg PO DAILY inflammation 5 days 08/17/22 #10 tabs amoxicillin 875 mg-potassium 1 tab PO BID 7 days #14 tabs 01/11/23 clavulanate 125 mg tablet Allergies Allergy/AdvReac Type Severity Reaction Status Date / Time No Known Allergies Allergy Verified 08/20/22 10:40 [No Known Allergies*] Review of Systems Review of Systems: Constitutional: No Fever, No Chills ENT/Mouth: No Ear Pain, No Nasal Congestion, No sore throat, No Rhinorrhea, No Swallowing Difficulty Cardiovascular: No Chest Pain, No SOB Respiratory: No Cough, No Sputum, No Wheezing Gastrointestinal: No Nausea, No Vomiting, No Abdominal pain Musculoskeletal: No joint pain Skin: No Skin Lesions, No rash Neuro: No Weakness Yes all other systems are reviewed and are negative Constitutional: Constitutional: Reports as per [facility] Past Medical History Attestation statement: The following information was validated with the patient. Source: old records reviewed Medical History Acute appendicitis Asthma No known health problems Surgical History S/P laparoscopic appendectomy Family History Family History Maternal Grandmother Colon cancer Maternal Grandfather Brain cancer Mother Brain tumor Social History Social History Household Members: Family Housing: Apartment Are you a primary healthcare educator to a significant other at home: No Do you presently have visiting nurse or other home services: No Alcohol intake: unknown Patient Tobacco Use Status: Never used Tobacco e-Cigarette/Vaping Use: Never Used service: No Current occupational status: employed and student Physical Exam ED Vital Signs: Vital Signs - 24 hr 01/11/23 14:34 Temperature 98.3 F Pulse Rate 74 Respiratory Rate 18 Blood Pressure 129/81 Pulse Oximetry 99 Oxygen Delivery Method Room Air BMI result Body Mass Index 22.5 Const General: cooperative, healthy appearing, no acute distress, alert and awake Orientation/consciousness: patient oriented x3 Limitations: no limitations HENMT Other: mild right sided facial swelling noted. Poor dentition with multiple caries and missing teeth. Right lower bicuspid missing/cracked with diffuse gingival swelling, mild erythema and tenderness to palpation. No fluctuance/induration. No trismus Head: Yes normal to inspection and Yes atraumatic Ears: hearing grossly normal bilaterally, external ears normal, TM's normal bilaterally and mastoids normal General nose exam: Normal external nose present Face and sinus: Yes normal facial exam Teeth and gingiva: poor dentition Throat: Yes posterior oropharynx normal, Yes uvula midline, No peritonsillar mass, No uvula laterally displaced and No uvular edema Eyes General: appearance normal, both eyes and all related structures EOM: EOMs intact bilaterally Neck Neck: Yes normal visual inspection and Yes no meningeal signs Resp Effort & Inspection: normal respiratory effort and no respiratory distress Cardio Rate: regular rate Skin Rashes: no rashes Wounds: no wounds Neuro General: patient oriented x3, tone normal and no meningeal signs Cranial nerves: Yes CN's II-XII intact bilaterally Gait exam (Neuro): Normal gait present Extrem General: Yes normal to inspection Medical Decision Making Medical Decision Making MDM Narrative: 22-year-old female with no significant past medical history presenting to the ED complaining of right-sided facial swelling and right lower dental pain since yesterday. On exam VSS, NAD, nontoxic appearing, mild right-sided facial swelling noted with multiple dental caries and gingival swelling/tenderness, no fluctuance/induration. Concern for dental infection/gingivitis. No focal abscess or cellulitis. No evidence of SECTION HAND HELPER/retropharyngeal abscess Plan: P.o. antibiotics, patient has dentist follow-up tomorrow Please refer to course for remaining clinical decision making, interpretation of labs/imaging results, and discussions with consultants and/or family members. Differential Diagnosis Differential Diagnoses: The differential diagnosis associated with the presentation includes As above External Record Review External record reviewed: Inpatient record, Office record, Outpatient record, Prior outpatient labs, Prior outpatient radiology, Primary care record and Outside ED record Tests considered The following testing was considered but not selected: As above Prescription Management I considered prescription management with: Pain Medication and Antibiotic Discharge Plan Discharge Clinical Impression: Dental caries, Toothache Patient Disposition: Home, Self-Care Instructions: Toothache (ED) Additional Instructions: Augmentin is an antibiotic please take prescribed Please follow-up with dentist as scheduled tomorrow Take Tylenol /Motrin for pain/swelling Prescriptions: New amoxicillin-pot clavulanate 875-125 mg tablet 1 tab PO BID 7 Days Qty: 14 0RF No Action ondansetron 4 mg tablet,disintegrating 4 mg PO Q6H PRN (Reason: nausea and vomiting) Qty: 10 0RF ferrous sulfate 325 mg (65 mg iron) Tablet 325 mg PO DAILY Qty: 90 3RF prednisone 20 mg tablet 40 mg PO DAILY 5 Days Qty: 10 0RF codeine-guaifenesin [Guaifenesin AC] 10-100 mg/5 mL liquid 5 ml PO Q6H PRN (Reason: cold symptoms) Qty: 120 0RF Referrals: Esa Nunez [Dentist] - Terrance Chatman DMD [Dentist] - Sudhir Augustin DMD [Dentist] - Janeen Antunez DMD [Dentist] - Interventions: ED Discharge Assessment Last Done: 01/11/23 14:37
--- NOTE | 2023-01-11 14:37 | PC.NURSE ---
eval dc by pit
== END 2023-01-11 14:59 | disposition home or self-care (01) ==
LOC: HO.ED 14:51
PROVIDERS: Emergency Provider Emergency Medicine
DX: K02.9 Dental caries, unspecified (principal); K08.89 Other specified disorders of teeth and supporting structures
CPT/HCPCS: 99282; 99283

== ENCOUNTER 2023-05-31 15:04 | Emergency (ER) | payer SELFPAY ==
--- NOTE | 2023-05-31 15:11 | ED.GENADULT ---
HPI - General Adult General Chief complaint: Allergic Reaction Stated complaint: Legs/body rash/itchy Time Seen by Provider: 05/31/23 15:17 Source: patient Mode of arrival: ambulatory Limitations: no limitations History of Present Illness HPI narrative: 22 yo female with no known medical history here with itching rash to legs/trunk x several hours. Changed soaps recently (Dove steiner smell). No new medications, foods or other products. No recent travel or sick contact. Related Data Previous Rx's Medication Instructions Recorded ferrous sulfate 325 mg (65 mg 325 mg PO DAILY #90 tabs 10/19/21 iron) tablet ondansetron 4 mg disintegrating 4 mg PO Q6H PRN nausea and 04/28/22 tablet vomiting #10 tabs codeine 10 mg-guaifenesin 100 mg/5 5 ml PO Q6H PRN cold symptoms #120 08/17/22 mL oral liquid (Guaifenesin AC) mL prednisone 20 mg tablet 40 mg (2 x 20 mg) PO DAILY 08/17/22 inflammation 5 days #10 tabs amoxicillin 875 mg-potassium 1 tab PO BID 7 days #14 tabs 01/11/23 clavulanate 125 mg tablet diphenhydramine HCl 25 mg capsule 25 mg PO TID PRN itching #20 caps 05/31/23 (Benadryl) hydrocortisone 1 % topical 1 appl topical BID PRN rash #28.35 05/31/23 ointment (Anti-Itch grams (hydrocortisone)) prednisone 20 mg tablet 40 mg (2 x 20 mg) PO DAILY #10 tabs 05/31/23 Allergies Allergy/AdvReac Type Severity Reaction Status Date / Time No Known Allergies Allergy Verified 05/31/23 15:15 [No Known Allergies*] Review of Systems Review of Systems: Yes all other systems are reviewed and are negative Constitutional: Constitutional: Reports no additional constitutional complaints, Denies body ache(s), Denies chills, Denies fever(s), Denies headache(s) and Denies weakness Eyes: Eyes: Reports no additional eye complaints and Denies change in vision ENT: Reports system reviewed and no additional complaints, except as documented, Denies dizziness, Denies headache(s), Denies nasal congestion, Denies nasal discharge and Denies neck pain Cardiovascular: Cardiovascular: Reports no additional cardiovascular complaints, Denies chest pain, Denies leg edema and Denies dyspnea Respiratory: Respiratory: Reports no additional respiratory complaints, Denies cough and Denies dyspnea Gastrointestinal: Gastrointestinal: Reports no additional gastrointestinal complaints, Denies abdominal pain, Denies diarrhea, Denies nausea and Denies vomiting Genitourinary: Genitourinary: Reports no additional female genitourinary complaints and Denies urinary incontinence Musculoskeletal: Musculoskeletal: Reports no additional musculoskeletal complaints, Denies back pain, Denies arthralgias, Denies joint swelling, Denies neck pain, Denies numbness and Denies tingling Integumentary/Breasts: Skin/Breast: Reports system reviewed and no additional complaints, except as docu and Reports rash Neurologic: Reports system reviewed and no additional complaints, except as documented, Denies Abnormal speech present, Denies dizziness, Denies headache(s), Denies numbness, Denies tingling and Denies weakness PMFSH Past Medical History Onset Date is defined in the Problem List Problems that require an onset date and time if occurred within 24 hrs of arrival to the ED Aortic Dissection and Rupture; Neurologic impairment; Cardiopulmonary Arrest; Endotracheal Intubation; Insertion or Replacement of Mechanical Circulatory Assist Device Medical History Acute appendicitis Asthma No known health problems Surgical History S/P laparoscopic appendectomy Family History Family History Maternal Grandmother Colon cancer Maternal Grandfather Brain cancer Mother Brain tumor Social History Social History Household Members: Family Housing: Apartment Are you a primary long term care phlebotomist to a significant other at home: No Do you presently have visiting nurse or other home services: No Alcohol intake: unknown Patient Tobacco Use Status: Never used Tobacco e-Cigarette/Vaping Use: Never Used service: No Current occupational status: employed and student Physical Exam ED Vital Signs: Vital Signs - 24 hr 05/31/23 15:13 Temperature 98.3 F Pulse Rate 76 Respiratory Rate 18 Blood Pressure 133/69 Pulse Oximetry 100 Oxygen Delivery Method Room Air BMI result Body Mass Index 23.5 Const General: cooperative, healthy appearing, comfortable and no acute distress Orientation/consciousness: patient oriented x3 Limitations: no limitations HENMT Head: Yes normal to inspection Ears: hearing grossly normal bilaterally General nose exam: Normal external nose present Face and sinus: Yes normal facial exam Mouth: Normal oral and palatal mucosa present Throat: Yes posterior oropharynx normal Eyes General: appearance normal, both eyes and all related structures Pupils: Equal, round and reactive pupils present Neck Neck: Yes normal visual inspection Chest Chest palpation & inspection: normal inspection of the chest Resp Effort & Inspection: normal respiratory effort Auscultation: clear to auscultation bilaterally Cardio Rate: regular rate Rhythm: regular rhythm Peripheral pulses: Peripheral pulses 2+ throughout GI Inspection: Yes normal to inspection Palpation (GI): Soft to palpation and nontender Auscultation: normal bowel sounds Back/Spine/Pelvis Thoracic/Lumbar Spine: thoracic and lumbar spine normal to inspection Skin Other: urticarial rash noted to the lower legs General skin exam: no rashes or lesions noted Neuro General: patient oriented x3, no focal motor deficits and normal sensation to monofilament Cranial nerves: Yes Equal, round and reactive pupils present Cognition (Neuro): normal cognition Speech: No Abnormal speech present Gait exam (Neuro): Normal gait present Motor exam (neuro): 5/5 motor strength present throughout Extrem General: Yes normal to inspection Medical Decision Making Medical Decision Making MDM Narrative: 22 yo female with no known medical history here with itching rash to legs/trunk x several hours. Changed soaps recently (Dove steiner smell). No new medications, foods or other products. No recent travel or sick contact. urticarial rash noted to the lower leg likely secondary to recent change in products no airway involvement or angioedema. Lungs are clear. Patient will be initiated on prednisone, Benadryl p.r.n. hydrocortisone p.r.n. Differential Diagnosis Differential Diagnoses: The differential diagnosis associated with the presentation includes allergic reaction, contact dermatitis low concern for dress syndrome, SJS, TEN Admission/Observation Consideration of admission/observation: Escalation of care including admission/observation considered low concern for dress syndrome, SJS, TEN requiring further workup and/or management Prescription Management I considered prescription management with: Antibiotic Discharge Plan Discharge Clinical Impression: Urticaria Patient Disposition: Home, Self-Care Instructions: Urticaria (ED) Additional Instructions: Take the benadryl as needed Use the itch cream as prescribed Take the prednisone as prescribed Prescriptions: New diphenhydramine HCl [Benadryl] 25 mg capsule 25 mg PO TID PRN (Reason: itching) Qty: 20 0RF hydrocortisone [Anti-Itch (HC)] 1 % ointment 1 appl topical BID PRN (Reason: rash) Qty: 28.35 0RF prednisone 20 mg tablet 40 mg PO DAILY Qty: 10 0RF No Action ondansetron 4 mg tablet,disintegrating 4 mg PO Q6H PRN (Reason: nausea and vomiting) Qty: 10 0RF ferrous sulfate 325 mg (65 mg iron) Tablet 325 mg PO DAILY Qty: 90 3RF prednisone 20 mg tablet 40 mg PO DAILY 5 Days Qty: 10 0RF codeine-guaifenesin [Guaifenesin AC] 10-100 mg/5 mL liquid 5 ml PO Q6H PRN (Reason: cold symptoms) Qty: 120 0RF amoxicillin-pot clavulanate 875-125 mg tablet 1 tab PO BID 7 Days Qty: 14 0RF Referrals: Physician,Unknown J [Primary Care Provider] - 1 week Stand Alone Forms: Work/School Release
[2023-05-31 15:13] VITALS: BP 133/69; PULSE 76; RESP 18; TEMP 36.8; O2SAT 100; BMI 23.5
== END 2023-05-31 15:28 | disposition home or self-care (01) ==
PROVIDERS: Emergency Provider Emergency Medicine
DX: L50.9 Urticaria, unspecified (principal)
CPT/HCPCS: 99282; 99283

== ENCOUNTER 2023-07-21 15:50 | Emergency (ER) | payer SELFPAY ==
--- NOTE | 2023-07-21 16:11 | ED_ITS ---
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 Patient denies any vaginal lesions, abdominal pain, nausea, vomiting, dysuria, hematuria, flank pain, fever, or chills. Related Data Previous Rx's Medication Instructions Recorded ferrous sulfate 325 mg (65 mg 325 mg PO DAILY #90 tabs 10/19/21 iron) tablet ondansetron 4 mg disintegrating 4 mg PO Q6H PRN nausea and 04/28/22 tablet vomiting #10 tabs codeine 10 mg-guaifenesin 100 mg/5 5 ml PO Q6H PRN cold symptoms #120 08/17/22 mL oral liquid (Guaifenesin AC) mL prednisone 20 mg tablet 40 mg (2 x 20 mg) PO DAILY 08/17/22 inflammation 5 days #10 tabs amoxicillin 875 mg-potassium 1 tab PO BID 7 days #14 tabs 01/11/23 clavulanate 125 mg tablet diphenhydramine HCl 25 mg capsule 25 mg PO TID PRN itching #20 caps 05/31/23 (Benadryl) hydrocortisone 1 % topical 1 appl topical BID PRN rash #28.35 05/31/23 ointment (Anti-Itch grams (hydrocortisone)) prednisone 20 mg tablet 40 mg (2 x 20 mg) PO DAILY #10 tabs 05/31/23 metronidazole 500 mg tablet 500 mg PO Q12H 7 days #14 tabs 07/21/23 Allergies Allergy/AdvReac Type Severity Reaction Status Date / Time No Known Allergies Allergy Verified 07/21/23 16:12 [No Known Allergies*] Review of Systems Review of Systems: Of vaginal itchiness white clear discharge Yes all other systems are reviewed and are negative PMFSH Past Medical History Medical History Acute appendicitis Asthma No known health problems Surgical History S/P laparoscopic appendectomy Family History Family History Maternal Grandmother Colon cancer Maternal Grandfather Brain cancer Mother Brain tumor Social History Social History Household Members: Family Housing: Apartment Are you a primary medical care manager to a significant other at home: No Do you presently have visiting nurse or other home services: No Alcohol intake: unknown Patient Tobacco Use Status: Never used Tobacco e-Cigarette/Vaping Use: Never Used Advance Directives: No Advance Directives Information Provided: No service: No Current occupational status: employed and student Physical Exam Vital Signs: Vital Signs: Last Vital Signs Temp 98.7 F 07/21/23 20:02 Pulse 76 07/21/23 20:02 Resp 20 07/21/23 20:02 BP 134/84 07/21/23 20:02 Pulse Ox 100 07/21/23 20:02 O2 Del Method Room Air 07/21/23 20:02 BMI result Body Mass Index 24.4 Const: General: cooperative, healthy appearing, comfortable, no acute distress, well developed, alert, awake and Physically active Orientation/consciousness: oriented to person, oriented to place, oriented to time and patient oriented x3 HEENT: Head: Yes normal to inspection, Yes No palpable skull fracture present, Yes normocephalic and Yes atraumatic Eyes: General: appearance normal, both eyes and all related structures Neck: Neck: Yes normal visual inspection, Yes full ROM, Yes no lymphadenopathy, Yes no meningeal signs, Yes trachea midline, Yes supple, No anterior neck swelling and No tender Chest: Chest palpation & inspection: normal inspection of the chest and normal palpation of entire chest wall Resp: Effort & Inspection: normal respiratory effort and able to speak in complete sentences Auscultation: clear to auscultation bilaterally Cardio: Jugular venous distension: no JVD Heart sounds: S1 normal heart sound present and S2 normal heart sound present GI: Inspection: Yes normal to inspection Palpation (GI): Soft to palpation, not firm, nontender, no guarding and not rigid : General: Yes no CVA tenderness External Female Exam: normal external appearance Speculum Exam - Vagina: abnormal vaginal discharge white Speculum Exam - Cervix: normal appearance of the cervix Bimanual exam- vagina & uterus: normal bimanual exam Bimanual Exam- Adnexa, other: normal adnexae Back/Spine/Pelvis: Back: no CVA tenderness and No back tenderness Skin: General skin exam: no rashes or lesions noted, elasticity normal and turgor normal Neuro: General: oriented to person, oriented to place, oriented to time, patient oriented x3, gait normal, tone normal, moves all extremities, Normal light touch and pain sensation, no meningeal signs, no focal motor deficits, CN's II-XI intact bilaterally and normal sensation to monofilament Extrem: General: Yes normal to inspection, Yes full ROM and Yes capillary refill normal Psych: Appearance: grossly normal, well kempt and not disheveled Course Course Course Narrative: RME: 22 year-old F w/ PMHx asthma presenting to the ED c/o vaginal pain x2 days s/p intercourse. is sexually active w/1 partner. Also reports vaginal discharge. denies vaginal bleeding, lesions, abd pain UA, U-preg, CTNG ordered Full HPI, ROS and PE to be performed by primary ED provider. Medical Decision Making Medical Decision Making [facility] Narrative: 22-year-old female with likely discharge after sexual activity 2 days ago. Complain of vaginal itchiness and white discharge. Chlamydia gonorrhea negative. Swabs for BV and trich. Will be treated prophylactically for vaginitis. Patient explained worrisome sign informed to return to the ED if she has them. UA negative for infection or Differential Diagnosis Differential Diagnoses: The differential diagnosis associated with the presentat ion includes (Chlamydia gonorrhea, BV trich UTI,) Admission/Observation Consideration of admission/observation: Escalation of care including admission/ observation considered Lab Data [facility] Lab Attestation statement: I reviewed the patient's lab results. Labs: Lab Results 07/21/23 07/21/23 07/21/23 Range/Units 16:52 19:18 20:13 Urine Color Yellow Urine Appearance Clear Urine pH 6.0 (5.0-9.0) Ur Specific Thayer <= 1.005 (1.005-1.025) Urine Protein Negative (Neg-Trace) mg/dL Urine Glucose (UA) Negative (Negative) mg/dL Urine Ketones Negative (Negative) mg/dL Urine Blood Negative (Negative) Urine Nitrite Negative (Negative) Ur Leukocyte Esterase Negative (Negative) Urine Test NEGATIVE (NEGATIVE) Hayley species DNA Negative (Negative) Chlam trachomat DNA PCR NOT DETECTED (Not Detect.) Gardnerella DNA Probe Positive A (Negative) N.gonorrhoeae DNA (PCR) NOT DETECTED (Not Detect.) Trichomonas DNA Probe Negative (Negative) External Record Review External record reviewed: Other (Prior visit) Prescription Management I considered prescription management with: Antibiotic Discharge Plan Discharge Clinical Impression: Vaginitis Patient Disposition: Home, Self-Care Instructions: Vaginal Discharge (ED) Additional Instructions: You are being treated empirically for vaginitis. Return to the ED immediately for any abdominal pain, nausea, vomiting, flank pain, fever, chills, worsening discharge, dysuria, hematuria, back pain, or any other concerning symptoms. Recommend follow-up with your PCP Prescriptions: New metronidazole 500 mg tablet 500 mg PO Q12H 7 Days Qty: 14 0RF No Action ondansetron 4 mg tablet,disintegrating 4 mg PO Q6H PRN (Reason: nausea and vomiting) Qty: 10 0RF ferrous sulfate 325 mg (65 mg iron) Tablet 325 mg PO DAILY Qty: 90 3RF prednisone 20 mg tablet 40 mg PO DAILY 5 Days Qty: 10 0RF codeine-guaifenesin [Guaifenesin AC] 10-100 mg/5 mL liquid 5 ml PO Q6H PRN (Reason: cold symptoms) Qty: 120 0RF amoxicillin-pot clavulanate 875-125 mg tablet 1 tab PO BID 7 Days Qty: 14 0RF diphenhydramine HCl [Benadryl] 25 mg capsule 25 mg PO TID PRN (Reason: itching) Qty: 20 0RF hydrocortisone [Anti-Itch (HC)] 1 % ointment 1 appl topical BID PRN (Reason: rash) Qty: 28.35 0RF prednisone 20 mg tablet 40 mg PO DAILY Qty: 10 0RF Interventions: ED Discharge Assessment Last Done: 07/21/23 20:26 Discharge Date/Time: 07/21/23 20:26 Print Language: Kinyarwanda
[2023-07-21 16:12] VITALS: BP 121/74; PULSE 78; RESP 16; TEMP 36.8; O2SAT 100; BMI 24.4
--- NOTE | 2023-07-21 16:55 | MHC.EDTECH ---
PATIENT CTNG URINE SAMPLE COLLECTED AND SENT TO LAB ,PATIENT NOT ABLE TO GIVE CLEAN CATH URINE SAMPLE AT THIS TIME .
[2023-07-21 18:26] LABS: CT PCR NOT DETECTED (Not Detect.); NG PCR NOT DETECTED (Not Detect.)
--- NOTE | 2023-07-21 19:22 | PC.NURSE ---
urine sample obtained and sent to lab at this time.
[2023-07-21 19:26] LABS: Appearance Urine Clear; Color Urine Yellow; Glucose Urine UA Negative (Negative); Leukocyte Esterase Urine Negative (Negative); Nitrite Urine Negative (Negative); Specific Gravity - Urine <= 1.005 (1.005-1.025); Urine Blood Negative (Negative); Urine Ketones Negative (Negative); Urine Protein Negative (Neg-Trace)
[2023-07-21 19:33] LABS: UPreg QC Valid YES; Urine Pregnancy NEGATIVE (NEGATIVE)
[2023-07-21 20:02] VITALS: BP 134/84; PULSE 76; RESP 20; TEMP 37.1; O2SAT 100
--- NOTE | 2023-07-21 20:15 | MHC.EDTECH ---
THIS PCT CHANNEL LIP WETTER PROVIDER GHULAM DURING PATIENT PELVIC EXAM ,SAMPLE COLLECTED AND SENT TO LAB .
[2023-07-22 11:35] LABS: BV Int Neg Control Negative (Negative); BV Int Pos Control Positive (Positive)
== END 2023-07-21 20:26 | disposition home or self-care (01) ==
PROVIDERS: Physician Assistant; Emergency Provider Internal Medicine
DX: N76.0 Acute vaginitis (principal); R10.2 Pelvic and perineal pain
CPT/HCPCS: 0353U; 81003; 81025; 87480; 87510; 87660; 99283

== ENCOUNTER 2024-09-01 00:04 | Emergency (ER) | payer SELFPAY ==
--- NOTE | ~2024-09-01 | XR_ITS ---
CLINICAL HISTORY: sob cough congestion asthma CHEST X-RAY FRONTAL AND LATERAL VIEWS COMPARISON: 08/17/2022. FINDINGS: Frontal and lateral views of the chest were performed. The cardiac size and mediastinal silhouette are within normal limits. The lungs are clear. There are no acute infiltrates or pleural effusions. There is no pneumothorax. IMPRESSION: 1. No acute disease. This document has been electronically signed by: Bob Granger M.D. on 09/01/2024 01:29:56
[2024-09-01 00:20] VITALS: BP 124/80; PULSE 81; RESP 18; TEMP 36.9; O2SAT 99; BMI 24.7
[2024-09-01 00:49] LABS: IDNOW Serial# 58CA691E; Strep A Nucleic Acid Negative (Negative)
--- NOTE | 2024-09-01 01:03 | ED_ITS ---
HPI - URI/Sore Throat General Chief Complaint: Upper Respiratory Symptoms Stated Complaint: asthma Time Seen by Provider: 09/01/24 00:58 Source: patient Mode of arrival: ambulatory Limitations: no limitations History of Present Illness ED Provider: Dr. Alida Coronel HPI Narrative: Patient comes to the emergency room complaining of 2 weeks so if URI symptoms including cough, congestion, sore throat an asthma exacerbations. Patient states that she used her inhaler about 3 days ago. Patient denies fever . Related Data Previous Rx's ?Medication ?Instructions ?Recorded ferrous sulfate 325 mg (65 mg 325 mg PO DAILY #90 tabs 10/19/21 iron) tablet ondansetron 4 mg disintegrating 4 mg PO Q6H PRN nausea and 04/28/22 tablet vomiting #10 tabs codeine 10 mg-guaifenesin 100 mg/5 5 ml PO Q6H PRN cold symptoms #120 08/17/22 mL oral liquid (Guaifenesin AC) mL prednisone 20 mg tablet 40 mg (2 x 20 mg) PO DAILY 08/17/22 inflammation 5 days #10 tabs amoxicillin 875 mg-potassium 1 tab PO BID 7 days #14 tabs 01/11/23 clavulanate 125 mg tablet diphenhydramine HCl 25 mg capsule 25 mg PO TID PRN itching #20 caps 05/31/23 (Benadryl) hydrocortisone 1 % topical 1 appl topical BID PRN rash #28.35 05/31/23 ointment (Anti-Itch grams (hydrocortisone)) prednisone 20 mg tablet 40 mg (2 x 20 mg) PO DAILY #10 tabs 05/31/23 metronidazole 500 mg tablet 500 mg PO Q12H 7 days #14 tabs 07/21/23 prednisone 50 mg tablet 50 mg PO DAILY #4 tabs 09/01/24 Allergies Allergy/AdvReac Type Severity Reaction Status Date / Time No Known Allergies Allergy Verified 09/01/24 00:22 [No Known Allergies*] Review of Systems Review of Systems: Constitutional : No Weight loss, No Fever, Complaining of Chills, No Night Sweats, No Fatigue, No Malaise ENT/Mouth : No Hearing loss, No Ear Pain, No Nasal Congestion, No Sinus Pain, No Hoarseness, No sore throat, No Rhinorrhea, No Swallowing Difficulty Eyes: No Eye Pain, No Swelling, No Redness, No Foreign Body, No Discharge, No Vision Changes Cardiovascular : No Chest Pain, No SOB, No Dyspnea on Exertion, No Orthopnea, No Edema, No Palpitations Respiratory : complaining of cough, more frequent asthma exacerbations, last time use an inhaler worse 3 days ago Gastrointestinal : No Nausea, No Vomiting, No Diarrhea, No Constipation, No abdominal Pain, No Hematochezia, No Melena Genitourinary : no irregular bleeding, No Dysuria, No Urinary Frequency, No Hematuria, No Urinary Incontinence, No Urgency, No Flank Pain, No Urinary Flow Changes, No Hesitancy Musculoskeletal : No joint pain, No Myalgias, No Joint Swelling Skin : No Skin Lesions, No rash Neuro : No Weakness, No Numbness, No Paresthesias, No Loss of Consciousness, No Dizziness, No Headache Psych : No Anxiety/Panic, No Depression, No SI/HI/AH/VH, No Social Issues, Heme/Lymph: No Bruising, No Bleeding,No Lymphadenopathy Endocrine : No Polyuria, No Polydipsia, No Temperature Intolerance [facility] Past Medical History Medical History Acute appendicitis Asthma No known health problems Surgical History S/P laparoscopic appendectomy Family History Family History Maternal Grandmother Colon cancer Maternal Grandfather Brain cancer Mother Brain tumor Social History Social History Household Members: Family Housing: Apartment Are you a primary childcare administrator to a significant other at home: No Do you presently have visiting nurse or other home services: No Alcohol intake: unknown Patient Tobacco Use Status: Never used Tobacco e-Cigarette/Vaping Use: Never Used Advance Directives: No Advance Directives Information Provided: Yes Do you have a plan to hurt others: No Plan service: No Current occupational status: employed and student Physical Exam Vital Signs: Vital Signs: Last Vital Signs Temp 98.5 F 09/01/24 00:20 Pulse 81 09/01/24 00:20 Resp 18 09/01/24 00:20 BP 124/80 09/01/24 00:20 Pulse Ox 99 09/01/24 00:20 O2 Del Method Room Air 09/01/24 00:20 BMI result Body Mass Index 24.7 Const: Other: Appearance: Alert. Oriented X3. No acute distress. Eyes: Pupils equal, round and reactive to light. ENT: Pharynx normal. Neck: Normal inspection. Neck supple. No lymph nodes noted. No crepitus CVS: Normal heart rate and rhythm. Pulses normal. Normal S1 and S2 Respiratory: No respiratory distress. Breath sounds normal. No Wheezing. No rales Abdomen: Soft and nontender. No rigidity. No distention. Skin: Skin warm and dry. Normal skin color. Normal skin turgor. Extremities: No lower extremity edema. No Lacerations. No Rash Neuro: Oriented X 3. No motor deficit. No sensory deficit. Moving all extremities. No slurred speech. CN 2 through 12 grossly intact Psych: calm, cooperative, normal affect Course Course Course Narrative: on physical exam, patient has no wheezing at all, well-appearing patient's labs and chest x-ray pending Medical Decision Making Medical Decision Making [facility] Narrative: patient isn't wheezing. However patient reports frequent asthma exacerbations, patient was given the 1st dose of prednisone in the ED patient's serology is positive for COVID-19, negative for influenza or RSV or strep. Chest x-ray does not show any acute abnormality. No consolidation patient states that she has enough albuterol inhalers at home Differential Diagnosis Differential Diagnoses: The differential diagnosis associated with the presentation includes ( as above) Lab Data [facility] Lab Attestation statement: I reviewed the patient's lab results. Labs: Lab Results 09/01/24 Range/Units 00:37 Influenza Type A (PCR) NEGATIVE (Negative) Influenza Type B (PCR) NEGATIVE (Negative) RSV RNA Qual (PCR) NEGATIVE (Negative) SARS-CoV-2 RNA (RT-PCR) POSITIVE A (Negative) S. pyogenes GrpA RADHA Negative (Negative) Independent Interpretation I performed an independent interpretation of an: Plain X-Ray Radiology Impression Discussion of test interpretation with radiology: I have reviewed the radiologist's reading. Radiologist Impression: FINDINGS: Frontal and lateral views of the chest were performed. The cardiac size and mediastinal silhouette are within normal limits. The lungs are clear. There are no acute infiltrates or pleural effusions. There is no pneumothorax. Discharge Plan Discharge Clinical Impression: COVID-19, Asthma Patient Disposition: Home, Self-Care Instructions: Asthma (ED), COVID-19 (Coronavirus Disease 2019) (ED) Additional Instructions: Please follow-up with your primary care physician tomorrow. If you have any wo rsening or new symptoms, please return to the emergency room or call 911 Prescriptions: New prednisone 50 mg tablet 50 mg PO DAILY Qty: 4 0RF No Action ondansetron 4 mg tablet,disintegrating 4 mg PO Q6H PRN (Reason: nausea and vomiting) Qty: 10 0RF ferrous sulfate 325 mg (65 mg iron) Tablet 325 mg PO DAILY Qty: 90 3RF prednisone 20 mg tablet 40 mg PO DAILY 5 Days Qty: 10 0RF codeine-guaifenesin [Guaifenesin AC] 10-100 mg/5 mL liquid 5 ml PO Q6H PRN (Reason: cold symptoms) Qty: 120 0RF amoxicillin-pot clavulanate 875-125 mg tablet 1 tab PO BID 7 Days Qty: 14 0RF diphenhydramine HCl [Benadryl] 25 mg capsule 25 mg PO TID PRN (Reason: itching) Qty: 20 0RF hydrocortisone [Anti-Itch (HC)] 1 % ointment 1 appl topical BID PRN (Reason: rash) Qty: 28.35 0RF prednisone 20 mg tablet 40 mg PO DAILY Qty: 10 0RF metronidazole 500 mg tablet 500 mg PO Q12H 7 Days Qty: 14 0RF Stand Alone Forms: Work/School Release Print Language: Portuguese
[2024-09-01 01:24] LABS: Influenza A PCR NEGATIVE (Negative); Influenza B PCR NEGATIVE (Negative); Resp Syncy Virus RNA Qual PCR NEGATIVE (Negative); SARS COV2 PCR INHOUSE POSITIVE (Negative)
[2024-09-01] MEDS: predniSONE 10 MG TABLET 50 MG PO (01:53)
[2024-09-01 01:56] VITALS: BP 124/80; PULSE 81; RESP 18; TEMP 36.9; O2SAT 99
== END 2024-09-01 01:57 | disposition home or self-care (01) ==
PROVIDERS: Emergency Provider Emergency Medicine
DX: U07.1 COVID-19 (principal); J45.909 Unspecified asthma, uncomplicated; Z03.818 Encounter for observation for suspected exposure to other biological agents ruled out
CPT/HCPCS: 0241U; 71046; 87651; 99282; 99283

== ENCOUNTER → 2024-09-01 00:33 | Outpatient (BNV) | payer SELFPAY | PROVIDERS: Emergency Provider Emergency Medicine; Visit Provider Radiology Diagnostic Radiology | DX: J45.909 Unspecified asthma, uncomplicated (principal) | CPT/HCPCS: 71046 ==